=== PATIENT | female | born 1935 | race Caucasian/White ===

== ENCOUNTER 2021-10-23 18:05 | Inpatient (IN) | payer OTHER ==
[~2021-10-23] VITALS: Ht 149.9 cm; Wt 35.4 kg
--- NOTE | 2021-10-23 18:25 | NUR ---
PATIENT SENT BY PMD FOR ECG AND PALPITATIONS AT THE MD OFFICE. THE PATIENT DENIES ANY PALPITATION/CP AT THIS TIME. THE PATIENT IS IN ROOM AIR AND DENIES SOB. RESPIRATION REGULAR AND UNLABORED. THE PATIENT IS ATTACHED TO THE MONITOR. WILL CONTINUE TO MONITOR THE PATIENT.
--- NOTE | 2021-10-23 18:27 | NUR ---
IV ESTABLISHED L AC 20G. LABS DRAWN AND SENT.
[2021-10-23 19:12] LABS: CALCIUM, SERUM 9.1 mg/dL (8.5-10.1); CARBON DIOXIDE 30 mmol/L (21-32); CHLORIDE 104 mmol/L (98-107); CREATININE 0.8 mg/dL (0.6-1.3); GLUCOSE 284 mg/dL (74-106); POTASSIUM 3.8 mmol/L (3.5-5.1); SODIUM SERUM 140 mmol/L (136-145); UREA NITROGEN, BLOOD 13 mg/dL (7-18)
--- NOTE | 2021-10-23 19:41 | NUR ---
technology applications teacher at bedside
[2021-10-23 19:56] LABS: BASOPHILS % (AUTO) 0.2 % (0.0-2.0); EOSINOPHILS % (AUTO) 0.6 % (0.0-6.0); HEMATOCRIT 38 % (33-45); HEMOGLOBIN 12.7 g/dL (11.5-14.8); LYMPHOCYTES # (AUTO) 1.3 K/uL (0.8-4.8); LYMPHOCYTES % (AUTO) 27.1 % (20.0-44.0); MEAN CORPUSCULAR HGB CONC 33 g/dl (31.0-36.0); MEAN CORPUSCULAR VOLUME 87 fL (82-100); MONOCYTES # (AUTO) 0.6 K/uL (0.1-1.30); NEUTROPHILS # (AUTO) 2.9 K/uL (1.8-8.9); NEUTROPHILS % (AUTO) 59.1 % (43.0-81.0); PLATELET COUNT (AUTO) 150 K/uL (150-450); RED BLOOD CELL COUNT(AUTO) 4.39 MIL/uL (4.0-5.2); WHITE BLOOD COUNT (AUTO) 4.9 K/uL (4.3-11.0)
--- NOTE | 2021-10-23 20:47 | NUR ---
COVID TEST COLLECTED AND SENT TO LAB
[2021-10-23] MEDS ORDERED: ASPIRIN 325 MG TABLET PO ONE (21:00)
[2021-10-23] MEDS ORDERED: ASPIRIN 325 MG TABLET ONE (21:01)
--- NOTE | 2021-10-23 21:41 | NUR ---
EPIC PAGED PER DR RICH
[2021-10-23] MEDS ORDERED: ACETAMINOPHEN 325 MG TABLET PO PRN (22:00)
[2021-10-23] MEDS ORDERED: hydrALAZINE HCL IV 20 MG VIAL IV PRN (22:00)
[2021-10-23] MEDS ORDERED: ONDANSETRON HCL/PF 4 MG/2 ML VIAL IVP PRN (22:00)
[2021-10-23] MEDS ORDERED: MORPHINE SULFATE INJ 2 MG/ML DISP.SYRIN IV PRN (22:00)
--- NOTE | 2021-10-23 22:38 | NUR ---
CALLED FOR REPORT NURSE WILL CALL BACK.
--- NOTE | 2021-10-23 22:44 | NUR ---
REPORT GIVEN TO SHERIN
[2021-10-23 23:10] VITALS: BP 140/87
--- NOTE | 2021-10-23 23:30 | NUR ---
PT TRANSPORTED TO [address] PER ACLS
--- NOTE | 2021-10-23 23:31 | NUR ---
RN ADMITTING NOTE PATIENT IN RECEIVED FROM ER VIA GURNEY, PATIENT AMBULATORY AND STEADY. PATIENT IS A/O X 2-3, UKRAINIAN SPEAKING, ABLE TO UNDERSTAND A LITTLE MALAY. PATIENT IS ON RA, TOLERATING WELL. NO SOB NOTED. PATIENT DOES NOT COMPLAIN OF ANY PAIN/CP AT THIS TIME. PATIENT HAS A LAC 20G SALINE LOCKED ONLY, PATENT AND INTACT. PATIENT'S TELE MONITOR READS 68 WITH BBB. SKIN IS INTACT. AL BELONGINGS INVENTORIED. PATIENT ORIENTED TO ROOM, RN, AND INFORMAL WAITER/WAITRESS. SAFETY MEASURES IN PLACE: BED LOCKED AND IN LOWEST POSITION, CALL LIGHT WITHIN REACH, SIDE RAILS UP. WILL MONITOR PATIENT CLOSELY.
--- NOTE | 2021-10-23 23:42 | NUR ---
ECHO BEING DONE AT BEDSIDE
[2021-10-24] MEDS ORDERED: *INSULIN REGULAR(HUMULIN R)HUM 100 UNIT/ML VIAL SQ PRN
[2021-10-24] MEDS ORDERED: DEXTROSE 50%-WATER 50 ML DISP.SYRIN IV PRN
[2021-10-24] MEDS: BLOOD SUGAR DIAGNOSTIC 1 EACH STRIP VI SCH ×5 (00:08→21:45)
[2021-10-24] MEDS: INSULIN GLARGINE, 100 UNIT/ML CARTRIDGE SQ SCH ×2 (00:10→21:44)
--- NOTE | 2021-10-24 00:10 | NUR ---
RN NOTE BS 262 MG/DL. PATIENT GIVEN 6 UNITS COVERAGE AND LANTUS 4 UNITS. SNACKS PROVIDED. WILL MONITOR PATIENT FOR HYPO/HYPERGLYCEMIA.
[2021-10-24 04:00] VITALS: BP 117/54
[2021-10-24] MEDS: INSULIN REGULAR, HUMAN 100 UNIT/ML 3 ML VIAL SQ PRN ×3 (06:22→18:20)
[2021-10-24 06:42] LABS: BASOPHILS % (AUTO) 0.4 % (0.0-2.0); HEMATOCRIT 32 % (33-45); HEMOGLOBIN 10.8 g/dL (11.5-14.8); LYMPHOCYTES # (AUTO) 1.3 K/uL (0.8-4.8); LYMPHOCYTES % (AUTO) 26.8 % (20.0-44.0); MEAN CORPUSCULAR HGB CONC 34 g/dl (31.0-36.0); MEAN CORPUSCULAR VOLUME 86 fL (82-100); MONOCYTES # (AUTO) 0.8 K/uL (0.1-1.30); MONOCYTES % (AUTO) 17.1 % (2.0-12.0); NEUTROPHILS # (AUTO) 2.6 K/uL (1.8-8.9); NEUTROPHILS % (AUTO) 54.7 % (43.0-81.0); PLATELET COUNT (AUTO) 141 K/uL (150-450); RED BLOOD CELL COUNT(AUTO) 3.73 MIL/uL (4.0-5.2); WHITE BLOOD COUNT (AUTO) 4.8 K/uL (4.3-11.0)
--- NOTE | 2021-10-24 06:43 | NUR ---
RN CLOSING NOTE PATIENT IS A/O X 2-3, DANISH SPEAKING, ABLE TO UNDERSTAND A LITTLE URDU. PATIENT IS ON RA, TOLERATING WELL. NO SOB NOTED. PATIENT DID NOT COMPLAIN OF CHEST PAIN/PAIN DURING THE SHIFT. PATIENT HAS A LAC 20G SALINE LOCKED ONLY, PATENT AND INTACT. PATIENT'S TELE MONITOR READS 65 WITH BBB. BS 190 MG/DL, COVERAGE GIVEN PER SLIDING SCALE. SAFETY MEASURES IN PLACE: BED LOCKED AND IN LOWEST POSITION, CALL LIGHT WITHIN REACH, SIDE RAILS UP. ALL NEEDS MET AND ATTENDED. ALL ORDERS CARRIED OUT. WILL ENDORSE TO DAY SHIFT NURSE FOR SAMIRA.
--- NOTE | 2021-10-24 07:30 | NUR ---
COUNCILLOR ABORIGINAL LAND COUNCIL OPENING NOTES PATIENT RECEIVED ASLEEP BUT EASILY ROUSED, IS A/O X 2-3, TRINIDADIAN SPEAKING, ABLE TO UNDERSTAND A LITTLE BELARUSIAN. PATIENT IS ON RA, TOLERATING WELL. NO S/S OF DISTRESS/SOB NOTED. PATIENT HAS A LAC 20G SALINE LOCKED ONLY, PATENT AND INTACT. PATIENT'S TELE MONITOR READS 65 WITH BBB. SAFETY MEASURES IN PLACE: BED LOCKED AND IN LOWEST POSITION, CALL LIGHT WITHIN REACH, SIDE RAILS UP. WILL CONT TO MONITOR.
[2021-10-24 08:00] VITALS: BP 110/60
[2021-10-24 08:55] LABS: ALANINE AMINOTRANSFERASE 23 U/L (12-78); ALBUMIN 2.9 g/dL (3.4-5.0); ALKALINE PHOSPHATASE 73 U/L (46-116); ASPARTATE AMINOTRANSFERASE 13 U/L (15-37); BILIRUBIN,TOTAL 0.2 mg/dL (0.2-1.0); CALCIUM, SERUM 8.5 mg/dL (8.5-10.1); CARBON DIOXIDE 31 mmol/L (21-32); CHLORIDE 110 mmol/L (98-107); CREATININE 0.7 mg/dL (0.6-1.3); GLUCOSE 220 mg/dL (74-106); MAGNESIUM 1.9 mg/dL (1.8-2.4); PHOSPHORUS 3.5 mg/dL (2.5-4.9); POTASSIUM 3.8 mmol/L (3.5-5.1); SODIUM SERUM 144 mmol/L (136-145); TOTAL PROTEIN, SERUM 5.8 g/dL (6.4-8.2); UREA NITROGEN, BLOOD 18 mg/dL (7-18)
[2021-10-24 09:18] LABS: BAND % (MANUAL) 1 % (0.0-5.0); LYMPHOCYTES % (MANUAL) 28 % (16-48); NEUTROPHILS % (MANUAL) 65 (42-76); REACTIVE LYMPHOCYTES 6 % (0-0)
[2021-10-24] MEDS: DOCUSATE SODIUM LIQ 100 MG/10 ML UDC PO SCH ×2 (09:34→17:37)
[2021-10-24] MEDS: POLYETHYLENE GLYCOL 3350 17 GM POWD.PACK PO SCH (09:34)
[2021-10-24] MEDS: HEPARIN SODIUM, PORCINE 5000 UNITS/1 ML VIAL SQ SCH ×2 (09:40→21:47)
[2021-10-24] MEDS: GLUCERNA SHAKE 237 ML CAN PO SCH (17:43)
--- NOTE | 2021-10-24 18:45 | NUR ---
SUPERVISOR MICROWAVE CLOSING NOTES PATIENT IS AWAKE, A/O X 2-3, SYRIAC SPEAKING, ABLE TO UNDERSTAND A LITTLE MALTESE. PATIENT IS ON RA, TOLERATING WELL. NO S/S OF DISTRESS/SOB NOTED. PATIENT HAS A LAC 20G SALINE LOCKED ONLY, PATENT AND INTACT. PATIENT'S TELE MONITOR READS 100 WITH BBB. NEEDS MET AND DUE MEDS ADMINISTERED. SAFETY MEASURES IN PLACE: BED LOCKED AND IN LOWEST POSITION, CALL LIGHT WITHIN REACH, SIDE RAILS UP. WILL CONT TO MONITOR. Addendum: 10/24/21 at 1855 by LUCRETIA BROCK RN WILL ENDORSE TO NEXT SHIFT
[2021-10-24] MEDS: ASPIRIN EC 81 MG TABLET.DR PO SCH (20:04)
[2021-10-24] MEDS: CARVEDILOL 3.125 MG TABLET PO SCH (20:04)
[2021-10-24] MEDS: LOSARTAN POTASSIUM 25 MG TABLET PO SCH (20:04)
[2021-10-24 20:22] VITALS: BP 136/51
[2021-10-24] MEDS ORDERED: ATORVASTATIN 40 MG TABLET PO SCH (22:00)
--- NOTE | 2021-10-24 23:32 | NUR ---
MS/TELE/RN PATIENT IS SLEEPING AT THIS TIME, APPEARS COMFORTABLE, NO SIGNS OF DISTRESS NOTED, CALL LIGHT IN REACH, WILL CONTINUE TO MONITOR.
[2021-10-25 00:50] VITALS: BP 120/58
[2021-10-25 04:16] VITALS: BP 138/88
--- NOTE | 2021-10-25 06:14 | NUR ---
MS/TELE/RN PATIENT IS STILL SLEEPING AT THIS TIME, APPEARS COMFORTABLE, NO SIGNS OF DISTRESS NOTED, CALL LIGHT IN REACH, ALL NEEDS ATTENDED AT THIS TIME, WILL CONTINUE TO MONITOR.
[2021-10-25] MEDS: INSULIN REGULAR, HUMAN 100 UNIT/ML 3 ML VIAL SQ PRN (06:31)
[2021-10-25] MEDS: BLOOD SUGAR DIAGNOSTIC 1 EACH STRIP VI SCH ×2 (06:32→12:09)
--- NOTE | 2021-10-25 07:20 | NUR ---
RESOURCE ECONOMIST OPENING NOTE PATIENT RECEIVED ASLEEP BUT EASY TO WAKE UP. PATIENT IS A/O X 2, PASHT[place] SPEAKING, ABLE TO UNDERSTAND A LITTLE ROMANSH. PATIENT IS ON ROOM AIR, TOLERATING WELL, WITH NO S/S OF RESPIRATORY DISTRESS NOTED. PATIENT HAS A LAC 20G ON SALINE LOCK, PATENT AND INTACT. PATIENT'S TELE MONITOR READING SR. SAFETY MEASURES IN PLACE: BED LOCKED AND IN LOWEST POSITION, CALL LIGHT WITHIN REACH, SIDE RAILS UP. WILL CONTINUE TO MONITOR.
[2021-10-25 08:00] VITALS: BP 118/64
[2021-10-25 08:11] LABS: CHOLESTEROL 189 mg/dL (<200); HDL CHOLESTEROL 107 mg/dL (40-60); LDL 71 mg/dL (0-99); TRIGLYCERIDES 34 mg/dL (30-150)
[2021-10-25] MEDS: CARVEDILOL 3.125 MG TABLET PO SCH ×2 (08:55→17:36)
[2021-10-25] MEDS: LOSARTAN POTASSIUM 25 MG TABLET PO SCH (08:55)
[2021-10-25] MEDS: GLUCERNA SHAKE 237 ML CAN PO SCH ×2 (08:55→17:37)
[2021-10-25] MEDS: DOCUSATE SODIUM LIQ 100 MG/10 ML UDC PO SCH ×2 (08:56→17:35)
[2021-10-25] MEDS: ASPIRIN EC 81 MG TABLET.DR PO SCH (08:56)
[2021-10-25] MEDS: POLYETHYLENE GLYCOL 3350 17 GM POWD.PACK PO SCH (08:56)
[2021-10-25] MEDS: HEPARIN SODIUM, PORCINE 5000 UNITS/1 ML VIAL SQ SCH (08:57)
[2021-10-25] MEDS ORDERED: LOSA25TA27 PO (11:25)
[2021-10-25] MEDS ORDERED: Aspirin Ec PO (11:25)
[2021-10-25] MEDS ORDERED: INSU100V28 SQ (11:25)
[2021-10-25] MEDS ORDERED: CARV3.122 PO (11:25)
[2021-10-25] MEDS ORDERED: ATOR40TA PO (11:25)
[2021-10-25] MEDS ORDERED: Insulin Glargine,Hum SQ (11:25)
[2021-10-25] MEDS ORDERED: DOCU50LI PO (11:25)
[2021-10-25] MEDS ORDERED: *INS REG SQ (11:25)
[2021-10-25] MEDS ORDERED: SYRI-614 SUBCUT (11:34)
[2021-10-25] MEDS ORDERED: LANC1COM7 MC (11:34)
[2021-10-25] MEDS ORDERED: BLOO-1451 MC (11:34)
--- NOTE | 2021-10-25 15:10 | NUR ---
COATING ENGINEER NOTE PATIENT SEEN BY DR. NUÑEZ WITH ORDER TO DISCHARGE PATIENT. PATIENT WITH SOME CONFUSION, UNABLE TO GIVE HEALTH TEACHING AT THIS TIME. WILL CONTINUE TO MONITOR PATIENT. SPOKE WITH PATIENT'S SON NICOLE AND HE SAID HE WILL PIPE COVERING MOLDER HPATIENT AROUND 1700H.
[2021-10-25] MEDS ORDERED: METFORMIN 500 MG TABLET PO SCH (17:00)
[2021-10-25 17:36] VITALS: BP 144/82
--- NOTE | 2021-10-25 17:45 | NUR ---
INTERIOR SPECIALIST NOTE PATIENT DISCHARGED ORDERED. IN STABLE CONDITION. IV ACCESS REMOVED AND COVERED WITH DRY DRESSING. HEALTH TEACHING GIVEN TO SON AND COVERED WITH DRY DRESSING. IN STABLE CONDITION. DISCHARGED ORDERED. IN STABLE CONDITION.
[2021-10-26] MEDS ORDERED: LOSARTAN POTASSIUM 25 MG TABLET PO SCH (09:00)
== END 2021-10-25 17:37 | disposition home or self-care (01) | DRG 315 ==
LOC: ER 18:09 → TELE 22:28
PROVIDERS: ADMIT Internal Medicine; ATTEND Nurse Practitioner Acute Care
DX: I42.9 Cardiomyopathy, unspecified (principal); E44.0 Moderate protein-calorie malnutrition; G30.9 Alzheimer's disease, unspecified; F02.80 Dementia in other diseases classified elsewhere, unspecified severity, without behavioral disturbance, psychotic disturbance, mood disturbance, and anxiety; I44.7 Left bundle-branch block, unspecified; Z20.822 Contact with and (suspected) exposure to COVID-19; E11.65 Type 2 diabetes mellitus with hyperglycemia; E78.5 Hyperlipidemia, unspecified; E88.09 Other disorders of plasma-protein metabolism, not elsewhere classified; I10 Essential (primary) hypertension; K59.00 Constipation, unspecified; Z79.4 Long term (current) use of insulin; Z79.82 Long term (current) use of aspirin; Z79.899 Other long term (current) drug therapy
CPT/HCPCS: 36415; 71045-TC; 80048-TC; 80053-TC; 80061-TC; 82962-TC; 83735-TC; 84100-TC; 84484-TC; 85025-TC; 87081-TC; 93307-TC; C9803; G0378; J1644; J1815

== ENCOUNTER 2023-03-22 00:32 | Inpatient (IN) | payer MEDICARE, OTHER ==
[~2023-03-22] VITALS: Ht 152.4 cm; Wt 35.4 kg
[~2023-03-22 00:32] MED LIST: ATOR40TA PO; Aspirin Ec PO; BLOO-1451 MC; CARV3.122 PO; DOCU50LI PO; Insulin Glargine,Hum SQ; LOSA25TA27 PO
[2023-03-22] MEDS ORDERED: PANTOPRAZOLE 80 MG in IV NS 0.9% 500 ML IV ONE (01:00)
[2023-03-22] MEDS ORDERED: PANTOPRAZOLE 40 MG VIAL ONE (01:08)
[2023-03-22 01:12] LABS: BASOPHILS % (AUTO) 0.8 % (0.0-2.0); EOSINOPHILS % (AUTO) 0.6 % (0.0-6.0); HEMATOCRIT 36 % (33-45); HEMOGLOBIN 11.7 g/dL (11.5-14.8); LYMPHOCYTES # (AUTO) 0.8 K/uL (0.8-4.8); LYMPHOCYTES % (AUTO) 18.5 % (20.0-44.0); MEAN CORPUSCULAR HEMOGLOBIN 28 PG (26.0-33.0); MEAN CORPUSCULAR HGB CONC 33 g/dl (31.0-36.0); MEAN CORPUSCULAR VOLUME 86 fL (82-100); MONOCYTES # (AUTO) 0.8 K/uL (0.1-1.30); MONOCYTES % (AUTO) 17.6 % (2.0-12.0); NEUTROPHILS # (AUTO) 2.8 K/uL (1.8-8.9); NEUTROPHILS % (AUTO) 62.5 % (43.0-81.0); PLATELET COUNT (AUTO) 175 K/uL (150-450); RED BLOOD CELL COUNT(AUTO) 4.15 MIL/uL (4.0-5.2); RED CELL DISTRIBUTION WIDTH 16.1 % (11.5-15.0); WHITE BLOOD COUNT (AUTO) 4.5 K/uL (4.3-11.0)
[2023-03-22 01:20] LABS: INR 1.03 (0.91-1.10); PARTIAL THROMBOPLASTIN TIME 23.7 SEC (24.3-34.3); PROTHROMBIN TIME 10.9 SECS (9.2-11.1)
[2023-03-22 01:40] LABS: ALANINE AMINOTRANSFERASE 83 U/L (12-78); ALBUMIN 3.4 g/dL (3.4-5.0); ALKALINE PHOSPHATASE 310 U/L (46-116); ASPARTATE AMINOTRANSFERASE 68 U/L (15-37); BILIRUBIN,DIRECT 0.1 mg/dL (0.0-0.2); BILIRUBIN,TOTAL 0.2 mg/dL (0.2-1.0); CALCIUM, SERUM 9.5 mg/dL (8.5-10.1); CARBON DIOXIDE 30 mmol/L (21-32); CHLORIDE 104 mmol/L (98-107); CREATININE 0.8 mg/dL (0.6-1.3); GLUCOSE 360 mg/dL (74-106); POTASSIUM 3.9 mmol/L (3.5-5.1); SODIUM SERUM 142 mmol/L (136-145); TOTAL PROTEIN, SERUM 7.4 g/dL (6.4-8.2); UREA NITROGEN, BLOOD 28 mg/dL (7-18)
[2023-03-22 02:38] LABS: LYMPHOCYTES % (MANUAL) 24 % (16-48); MONOCYTES % (MANUAL) 13 % (0-11.0); NEUTROPHILS % (MANUAL) 63 (42-76); PLATELET ESTIMATE ADEQUATE
[2023-03-22] MEDS ORDERED: GLUC1KIT IM (09:49)
[2023-03-22] MEDS ORDERED: MIRT7.5T10 PO (09:49)
[2023-03-22] MEDS ORDERED: METF-440 PO (09:49)
[2023-03-22] MEDS ORDERED: ASCO500T10 PO (09:49)
[2023-03-22] MEDS ORDERED: SITA100T PO (09:49)
[2023-03-22] MEDS ORDERED: MAGN400O6 PO (09:49)
[2023-03-22] MEDS ORDERED: SENN-261 PO (09:49)
[2023-03-22] MEDS ORDERED: BISA10SU11 RC (09:49)
[2023-03-22] MEDS ORDERED: ACET-868 PO (09:49)
[2023-03-22] MEDS ORDERED: MULT-213 PO (09:49)
[2023-03-22] MEDS ORDERED: DOCU-141 PO (09:49)
[2023-03-22] MEDS ORDERED: INSU100V7 SQ (09:49)
[2023-03-22] MEDS ORDERED: ACET-2605 PO (09:49)
[2023-03-22] MEDS ORDERED: Z GUARD REMEDY 4 OZ OINT TP PRN (12:30)
[2023-03-22] MEDS ORDERED: ONDANSETRON HCL/PF 4 MG/2 ML VIAL IVP PRN (12:30)
[2023-03-22] MEDS ORDERED: MAG HYDROX/AL HYDROX/SIMETH 30 ML UDC PO PRN (12:30)
[2023-03-22] MEDS ORDERED: MAGNESIUM HYDROXIDE 30 ML UDC PO PRN (12:30)
[2023-03-22] MEDS ORDERED: ACETAMINOPHEN 325 MG TABLET PO PRN (12:30)
[2023-03-22 16:17] VITALS: BP 118/71; TEMP 98.1; O2SAT 100
[2023-03-22 20:25] VITALS: BP 130/72; TEMP 97.6; O2SAT 94
[2023-03-22] MEDS: MIRTAZAPINE 15 MG TABLET PO SCH (21:55)
[2023-03-22] MEDS: BLOOD SUGAR DIAGNOSTIC 1 EACH STRIP VI SCH (21:57)
[2023-03-22] MEDS: *INSULIN REGULAR(HUMULIN R)HUM 100 UNIT/ML VIAL SQ PRN (21:59)
[2023-03-22] MEDS: INSULIN GLARGINE, 100 UNIT/ML CARTRIDGE SQ SCH (22:00)
[2023-03-23 04:00] VITALS: BP 130/88; TEMP 98; O2SAT 94
[2023-03-23] MEDS: BLOOD SUGAR DIAGNOSTIC 1 EACH STRIP VI SCH ×4 (07:30→22:10)
[2023-03-23 08:00] VITALS: BP 125/78; TEMP 98; O2SAT 94
[2023-03-23] MEDS: ASCORBIC ACID 500 MG TABLET PO SCH ×2 (08:10→08:11)
[2023-03-23] MEDS: MULTIVIT W/MINERALS 1 TAB TABLET PO SCH (08:10)
[2023-03-23] MEDS: LINAGLIPTIN 5 MG TABLET PO SCH (08:11)
[2023-03-23] MEDS ORDERED: PANTOPRAZOLE 40 MG VIAL IV SCH (09:00)
[2023-03-23 12:00] VITALS: BP 128/76; TEMP 97.9; O2SAT 97
[2023-03-23] MEDS: INSULIN REGULAR, HUMAN 100 UNIT/ML 3 ML VIAL SQ PRN ×3 (13:12→22:05)
[2023-03-23 15:29] LABS: BASOPHILS % (AUTO) 0.3 % (0.0-2.0); EOSINOPHILS % (AUTO) 0.8 % (0.0-6.0); HEMATOCRIT 34 % (33-45); HEMOGLOBIN 11.2 g/dL (11.5-14.8); LYMPHOCYTES % (AUTO) 18.5 % (20.0-44.0); MEAN CORPUSCULAR HEMOGLOBIN 28 PG (26.0-33.0); MEAN CORPUSCULAR HGB CONC 33 g/dl (31.0-36.0); MEAN CORPUSCULAR VOLUME 86 fL (82-100); MONOCYTES # (AUTO) 0.7 K/uL (0.1-1.30); NEUTROPHILS # (AUTO) 3.5 K/uL (1.8-8.9); NEUTROPHILS % (AUTO) 66.4 % (43.0-81.0); PLATELET COUNT (AUTO) 169 K/uL (150-450); RED BLOOD CELL COUNT(AUTO) 3.97 MIL/uL (4.0-5.2); RED CELL DISTRIBUTION WIDTH 16.3 % (11.5-15.0); WHITE BLOOD COUNT (AUTO) 5.3 K/uL (4.3-11.0)
[2023-03-23 15:44] LABS: ALANINE AMINOTRANSFERASE 45 U/L (12-78); ALBUMIN 2.6 g/dL (3.4-5.0); ALKALINE PHOSPHATASE 173 U/L (46-116); ASPARTATE AMINOTRANSFERASE 21 U/L (15-37); BILIRUBIN,DIRECT 0.1 mg/dL (0.0-0.2); BILIRUBIN,TOTAL 0.2 mg/dL (0.2-1.0); CALCIUM, SERUM 8.5 mg/dL (8.5-10.1); CARBON DIOXIDE 24 mmol/L (21-32); CHLORIDE 107 mmol/L (98-107); CREATININE 0.6 mg/dL (0.6-1.3); GLUCOSE 215 mg/dL (74-106); MAGNESIUM 2.1 mg/dL (1.8-2.4); PHOSPHORUS 4.2 mg/dL (2.5-4.9); POTASSIUM 3.9 mmol/L (3.5-5.1); SODIUM SERUM 141 mmol/L (136-145); UREA NITROGEN, BLOOD 30 mg/dL (7-18)
[2023-03-23 16:00] VITALS: BP 133/86; TEMP 98; O2SAT 95
[2023-03-23] MEDS: OLANZAPINE 10 MG VIAL IM PRN (19:50)
[2023-03-23 20:00] VITALS: BP 144/71; TEMP 97.8; O2SAT 97
[2023-03-23] MEDS: MIRTAZAPINE 15 MG TABLET PO SCH (22:00)
[2023-03-23] MEDS: INSULIN GLARGINE, 100 UNIT/ML CARTRIDGE SQ SCH (22:06)
[2023-03-23] MEDS: ZOLPIDEM TARTRATE 5 MG TABLET PO PRN (22:30)
[2023-03-24] VITALS: BP 139/68; TEMP 97.8; O2SAT 98
[2023-03-24 05:06] VITALS: BP 111/55; TEMP 97.6; O2SAT 96
[2023-03-24] MEDS: DEXTROSE 50%-WATER 50 ML DISP.SYRIN IV PRN ×2 (05:35→12:24)
[2023-03-24 06:21] LABS: BASOPHILS % (AUTO) 0.1 % (0.0-2.0); EOSINOPHILS % (AUTO) 0.2 % (0.0-6.0); HEMATOCRIT 36 % (33-45); LYMPHOCYTES # (AUTO) 0.8 K/uL (0.8-4.8); LYMPHOCYTES % (AUTO) 9.1 % (20.0-44.0); MEAN CORPUSCULAR HEMOGLOBIN 29 PG (26.0-33.0); MEAN CORPUSCULAR HGB CONC 33 g/dl (31.0-36.0); MEAN CORPUSCULAR VOLUME 86 fL (82-100); MONOCYTES # (AUTO) 0.8 K/uL (0.1-1.30); MONOCYTES % (AUTO) 9.6 % (2.0-12.0); NEUTROPHILS # (AUTO) 6.8 K/uL (1.8-8.9); PLATELET COUNT (AUTO) 207 K/uL (150-450); RED BLOOD CELL COUNT(AUTO) 4.19 MIL/uL (4.0-5.2); RED CELL DISTRIBUTION WIDTH 15.9 % (11.5-15.0); WHITE BLOOD COUNT (AUTO) 8.4 K/uL (4.3-11.0)
[2023-03-24] MEDS: BLOOD SUGAR DIAGNOSTIC 1 EACH STRIP VI SCH ×4 (06:34→22:15)
[2023-03-24] MEDS: INSULIN REGULAR, HUMAN 100 UNIT/ML 3 ML VIAL SQ PRN ×3 (06:34→17:22)
[2023-03-24 06:42] LABS: BILIRUBIN,DIRECT 0.1 mg/dL (0.0-0.2); BILIRUBIN,TOTAL 0.2 mg/dL (0.2-1.0); TOTAL PROTEIN, SERUM 6.9 g/dL (6.4-8.2)
[2023-03-24 06:45] LABS: CALCIUM, SERUM 9.1 mg/dL (8.5-10.1); CARBON DIOXIDE 25 mmol/L (21-32); CHLORIDE 109 mmol/L (98-107); CREATININE 0.6 mg/dL (0.6-1.3); MAGNESIUM 2.1 mg/dL (1.8-2.4); PHOSPHORUS 3.8 mg/dL (2.5-4.9); POTASSIUM 3.5 mmol/L (3.5-5.1); SODIUM SERUM 143 mmol/L (136-145); UREA NITROGEN, BLOOD 37 mg/dL (7-18)
[2023-03-24 06:50] LABS: GLUCOSE 46 mg/dL (74-106)
[2023-03-24 08:00] VITALS: BP 112/61; TEMP 98; O2SAT 97
[2023-03-24] MEDS: PANTOPRAZOLE 40 MG TABLET.DR PO SCH (10:51)
[2023-03-24] MEDS: MULTIVIT W/MINERALS 1 TAB TABLET PO SCH (10:52)
[2023-03-24] MEDS: ASCORBIC ACID 500 MG TABLET PO SCH (10:52)
[2023-03-24] MEDS: LINAGLIPTIN 5 MG TABLET PO SCH (10:52)
[2023-03-24 12:00] VITALS: BP 125/68; TEMP 98; O2SAT 99
[2023-03-24 16:00] VITALS: BP 119/63; TEMP 98; O2SAT 98
[2023-03-24 20:00] VITALS: BP 149/89; TEMP 98.4; O2SAT 95
[2023-03-24] MEDS: OLANZAPINE 10 MG VIAL IM PRN (20:39)
[2023-03-24] MEDS: *INSULIN REGULAR(HUMULIN R)HUM 100 UNIT/ML VIAL SQ PRN (22:13)
[2023-03-24] MEDS: INSULIN GLARGINE, 100 UNIT/ML CARTRIDGE SQ SCH (22:14)
[2023-03-24] MEDS: MIRTAZAPINE 15 MG TABLET PO SCH (22:31)
[2023-03-24] MEDS: ZOLPIDEM TARTRATE 5 MG TABLET PO PRN (22:31)
[2023-03-25 00:10] VITALS: BP 134/83; TEMP 97.6; O2SAT 95
[2023-03-25] MEDS ORDERED: OLANZAPINE 10 MG VIAL IM ONE (02:30)
[2023-03-25] MEDS: BLOOD SUGAR DIAGNOSTIC 1 EACH STRIP VI SCH ×4 (05:33→22:53)
[2023-03-25] MEDS: INSULIN REGULAR, HUMAN 100 UNIT/ML 3 ML VIAL SQ PRN ×3 (05:33→18:07)
[2023-03-25 07:00] VITALS: BP 109/62; TEMP 97.6; O2SAT 100
[2023-03-25 07:21] LABS: BASOPHILS % (AUTO) 0.1 % (0.0-2.0); EOSINOPHILS % (AUTO) 0.2 % (0.0-6.0); HEMATOCRIT 38 % (33-45); HEMOGLOBIN 12.3 g/dL (11.5-14.8); LYMPHOCYTES # (AUTO) 0.8 K/uL (0.8-4.8); LYMPHOCYTES % (AUTO) 6.7 % (20.0-44.0); MEAN CORPUSCULAR HEMOGLOBIN 28 PG (26.0-33.0); MEAN CORPUSCULAR HGB CONC 33 g/dl (31.0-36.0); MEAN CORPUSCULAR VOLUME 87 fL (82-100); MONOCYTES # (AUTO) 1.7 K/uL (0.1-1.30); MONOCYTES % (AUTO) 15.1 % (2.0-12.0); NEUTROPHILS % (AUTO) 77.9 % (43.0-81.0); PLATELET COUNT (AUTO) 179 K/uL (150-450); RED BLOOD CELL COUNT(AUTO) 4.37 MIL/uL (4.0-5.2); RED CELL DISTRIBUTION WIDTH 16.1 % (11.5-15.0); WHITE BLOOD COUNT (AUTO) 11.6 K/uL (4.3-11.0)
[2023-03-25 07:39] LABS: CALCIUM, SERUM 8.6 mg/dL (8.5-10.1); CARBON DIOXIDE 22 mmol/L (21-32); CHLORIDE 108 mmol/L (98-107); CREATININE 0.5 mg/dL (0.6-1.3); GLUCOSE 90 mg/dL (74-106); MAGNESIUM 2.2 mg/dL (1.8-2.4); PHOSPHORUS 3.1 mg/dL (2.5-4.9); POTASSIUM 3.7 mmol/L (3.5-5.1); SODIUM SERUM 140 mmol/L (136-145); UREA NITROGEN, BLOOD 21 mg/dL (7-18)
[2023-03-25 08:00] VITALS: BP 138/59; TEMP 97.7; O2SAT 98
[2023-03-25] MEDS: MULTIVIT W/MINERALS 1 TAB TABLET PO SCH (08:57)
[2023-03-25] MEDS: PANTOPRAZOLE 40 MG TABLET.DR PO SCH (08:57)
[2023-03-25] MEDS: LINAGLIPTIN 5 MG TABLET PO SCH (08:58)
[2023-03-25] MEDS: ASCORBIC ACID 500 MG TABLET PO SCH (08:58)
[2023-03-25 11:06] LABS: BAND % (MANUAL) 2 % (0.0-5.0); LYMPHOCYTES % (MANUAL) 6 % (16-48); MONOCYTES % (MANUAL) 13 % (0-11.0); NEUTROPHILS % (MANUAL) 79 (42-76); PLATELET ESTIMATE ADEQUATE
[2023-03-25 12:00] VITALS: BP 118/76; TEMP 98.2; O2SAT 98
[2023-03-25] MEDS ORDERED: AMOX-430 PO (15:58)
[2023-03-25 16:00] VITALS: BP 94/52; TEMP 97.3; O2SAT 94
[2023-03-25] MEDS: AMOX/CLAVULANATE 875 MG TABLET PO SCH ×2 (16:50→22:08)
[2023-03-25 20:00] VITALS: BP 107/62; TEMP 97.6; O2SAT 98
[2023-03-25] MEDS: MIRTAZAPINE 15 MG TABLET PO SCH (22:08)
[2023-03-25] MEDS: INSULIN GLARGINE, 100 UNIT/ML CARTRIDGE SQ SCH (23:01)
[2023-03-25] MEDS: *INSULIN REGULAR(HUMULIN R)HUM 100 UNIT/ML VIAL SQ PRN (23:03)
[2023-03-26] MEDS: BLOOD SUGAR DIAGNOSTIC 1 EACH STRIP VI SCH ×2 (06:40→11:48)
[2023-03-26 08:00] VITALS: BP 116/59; TEMP 97.9; O2SAT 95
[2023-03-26] MEDS: PANTOPRAZOLE 40 MG TABLET.DR PO SCH (08:57)
[2023-03-26] MEDS: ASCORBIC ACID 500 MG TABLET PO SCH (08:57)
[2023-03-26] MEDS: AMOX/CLAVULANATE 875 MG TABLET PO SCH (08:57)
[2023-03-26] MEDS: MULTIVIT W/MINERALS 1 TAB TABLET PO SCH (08:57)
[2023-03-26] MEDS ORDERED: NEOMY SULF/BACITRAC ZN/POLY 15 GM TUBE TP SCH (09:00)
[2023-03-26] MEDS: LINAGLIPTIN 5 MG TABLET PO SCH (09:24)
[2023-03-26] MEDS: INSULIN REGULAR, HUMAN 100 UNIT/ML 3 ML VIAL SQ PRN (12:25)
[2023-03-26 12:30] VITALS: BP 129/59; TEMP 97.9; O2SAT 95
[2023-03-26] MEDS ORDERED: GLUCERNA SHAKE 237 ML CAN PO SCH (17:00)
== END 2023-03-26 14:00 | DRG 871 ==
LOC: ER 00:44 → TRANSITION 09:39 → TELE 12:16 → MED 03-25 17:45 → TELE 03-26 05:00 → MED 03-26 05:13
PROVIDERS: ADMIT Student in an Organized Health Care Education/Training Program; ATTEND Nurse Practitioner Acute Care
DX: A41.9 Sepsis, unspecified organism (principal); J15.69 Pneumonia due to other Gram-negative bacteria; K92.2 Gastrointestinal hemorrhage, unspecified; F03.911 Unspecified dementia, unspecified severity, with agitation; E11.649 Type 2 diabetes mellitus with hypoglycemia without coma; Z98.890 Other specified postprocedural states; Z79.4 Long term (current) use of insulin; Z79.82 Long term (current) use of aspirin; Z79.899 Other long term (current) drug therapy; L02.93 Carbuncle, unspecified; I80.8 Phlebitis and thrombophlebitis of other sites; I10 Essential (primary) hypertension; E78.5 Hyperlipidemia, unspecified; Z79.84 Long term (current) use of oral hypoglycemic drugs; R79.89 Other specified abnormal findings of blood chemistry; R74.01 Elevation of levels of liver transaminase levels
CPT/HCPCS: 36415; 71045-TC; 76882; 80048-TC; 80076-TC; 82962-TC; 83735-TC; 84100-TC; 85025-TC; 85027-TC; 85730-TC; 86850-TC; 87081-TC; C9113; G0378; J1815; J3490; J7040

== ENCOUNTER 2023-04-03 01:18 | Inpatient (IN) | payer MEDICARE, OTHER ==
[~2023-04-03] VITALS: Ht 152.4 cm; Wt 39.5 kg
[~2023-04-03 01:18] MED LIST changes: +ACET-2605 PO; +ACET-868 PO; +AMOX-430 PO; +ASCO500T10 PO; -ATOR40TA PO; -Aspirin Ec PO; +BISA10SU11 RC; -BLOO-1451 MC; -CARV3.122 PO; +DOCU-141 PO; -DOCU50LI PO; +GLUC1KIT IM; +INSU100V7 SQ; -Insulin Glargine,Hum SQ; -LOSA25TA27 PO; +MAGN400O6 PO; +METF-440 PO; +MIRT7.5T10 PO; +MULT-213 PO; +SENN-261 PO; +SITA100T PO
[2023-04-03 04:40] LABS: BASOPHILS % (AUTO) 0.4 % (0.0-2.0); EOSINOPHILS # (AUTO) 0.1 K/uL (0.0-0.7); EOSINOPHILS % (AUTO) 1.3 % (0.0-6.0); HEMATOCRIT 32 % (33-45); HEMOGLOBIN 10.6 g/dL (11.5-14.8); LYMPHOCYTES # (AUTO) 1.4 K/uL (0.8-4.8); LYMPHOCYTES % (AUTO) 29.3 % (20.0-44.0); MEAN CORPUSCULAR HEMOGLOBIN 28 PG (26.0-33.0); MEAN CORPUSCULAR HGB CONC 33 g/dl (31.0-36.0); MEAN CORPUSCULAR VOLUME 86 fL (82-100); MONOCYTES # (AUTO) 0.8 K/uL (0.1-1.30); MONOCYTES % (AUTO) 17.7 % (2.0-12.0); NEUTROPHILS # (AUTO) 2.4 K/uL (1.8-8.9); NEUTROPHILS % (AUTO) 51.3 % (43.0-81.0); PLATELET COUNT (AUTO) 291 K/uL (150-450); RED BLOOD CELL COUNT(AUTO) 3.74 MIL/uL (4.0-5.2); RED CELL DISTRIBUTION WIDTH 15.6 % (11.5-15.0); WHITE BLOOD COUNT (AUTO) 4.7 K/uL (4.3-11.0)
[2023-04-03 04:43] LABS: CALCIUM, SERUM 9.2 mg/dL (8.5-10.1); CARBON DIOXIDE 25 mmol/L (21-32); CHLORIDE 108 mmol/L (98-107); CREATININE 0.9 mg/dL (0.6-1.3); SODIUM SERUM 141 mmol/L (136-145); UREA NITROGEN, BLOOD 29 mg/dL (7-18)
[2023-04-03 04:55] LABS: GLUCOSE 49 mg/dL (74-106)
[2023-04-03] MEDS ORDERED: DEXTROSE 50%-WATER 50 ML DISP.SYRIN ONE (04:57)
[2023-04-03] MEDS ORDERED: CEFEPIME 1 GM in IV D5W 50 ML IV ONE (05:30)
[2023-04-03] MEDS ORDERED: VANCOMYCIN 1 GM in IV D5W 250 ML IV ONE (05:30)
[2023-04-03] MEDS ORDERED: CEFEPIME 1 GM VIAL ONE (05:59)
[2023-04-03] MEDS ORDERED: VANCOMYCIN 1 GM /D5W 250 ML PB IV ONE (06:00)
[2023-04-03 08:04] LABS: LYMPHOCYTES % (MANUAL) 34 % (16-48); MONOCYTES % (MANUAL) 13 % (0-11.0); NEUTROPHILS % (MANUAL) 53 (42-76); PLATELET ESTIMATE ADEQUATE
[2023-04-03] MEDS ORDERED: DEXT38GE12 PO (08:41)
[2023-04-03] MEDS ORDERED: IBUP-1957 PO (08:41)
[2023-04-03] MEDS ORDERED: VANC1VIA34 IV (09:46)
[2023-04-03] MEDS ORDERED: ONDANSETRON HCL/PF 4 MG/2 ML VIAL IVP PRN (10:30)
[2023-04-03] MEDS ORDERED: MAG HYDROX/AL HYDROX/SIMETH 30 ML UDC PO PRN (10:30)
[2023-04-03] MEDS ORDERED: Z GUARD REMEDY 4 OZ OINT TP PRN (10:30)
[2023-04-03] MEDS ORDERED: IV D5/0.45 NACL 1,000 ML IV PRN (10:30)
[2023-04-03] MEDS ORDERED: ACETAMINOPHEN 325 MG TABLET PO PRN (10:30)
[2023-04-03] MEDS ORDERED: DEXTROSE 50%-WATER 50 ML DISP.SYRIN IV PRN (10:30)
[2023-04-03] MEDS ORDERED: MAGNESIUM HYDROXIDE 30 ML UDC PO PRN (10:30)
[2023-04-03] MEDS: INSULIN REGULAR, HUMAN 100 UNIT/ML 3 ML VIAL SQ PRN (12:18)
[2023-04-03] MEDS: BLOOD SUGAR DIAGNOSTIC 1 EACH STRIP VI SCH ×3 (12:26→22:07)
[2023-04-03 16:00] VITALS: BP 107/61; TEMP 97.9; O2SAT 94
[2023-04-03 20:00] VITALS: BP 122/64; TEMP 97.9; O2SAT 100
[2023-04-03] MEDS: *INSULIN REGULAR(HUMULIN R)HUM 100 UNIT/ML VIAL SQ PRN (22:10)
[2023-04-04] MEDS: VANCOMYCIN HCL 0.75 GM in IV D5W 250 ML IV SCH (06:01)
[2023-04-04] MEDS: BLOOD SUGAR DIAGNOSTIC 1 EACH STRIP VI SCH ×4 (06:41→22:58)
[2023-04-04] MEDS: INSULIN REGULAR, HUMAN 100 UNIT/ML 3 ML VIAL SQ PRN ×2 (06:41→17:17)
[2023-04-04 07:30] VITALS: BP 118/70; TEMP 97.3; O2SAT 97
[2023-04-04 07:34] LABS: BASOPHILS % (AUTO) 0.5 % (0.0-2.0); EOSINOPHILS # (AUTO) 0.1 K/uL (0.0-0.7); EOSINOPHILS % (AUTO) 1.6 % (0.0-6.0); HEMATOCRIT 33 % (33-45); HEMOGLOBIN 10.5 g/dL (11.5-14.8); LYMPHOCYTES # (AUTO) 1.1 K/uL (0.8-4.8); LYMPHOCYTES % (AUTO) 24.3 % (20.0-44.0); MEAN CORPUSCULAR HEMOGLOBIN 28 PG (26.0-33.0); MEAN CORPUSCULAR HGB CONC 32 g/dl (31.0-36.0); MEAN CORPUSCULAR VOLUME 86 fL (82-100); MONOCYTES # (AUTO) 0.9 K/uL (0.1-1.30); MONOCYTES % (AUTO) 19.4 % (2.0-12.0); NEUTROPHILS # (AUTO) 2.5 K/uL (1.8-8.9); NEUTROPHILS % (AUTO) 54.2 % (43.0-81.0); PLATELET COUNT (AUTO) 244 K/uL (150-450); RED BLOOD CELL COUNT(AUTO) 3.78 MIL/uL (4.0-5.2); RED CELL DISTRIBUTION WIDTH 15.7 % (11.5-15.0); WHITE BLOOD COUNT (AUTO) 4.7 K/uL (4.3-11.0)
[2023-04-04 07:50] LABS: CALCIUM, SERUM 8.5 mg/dL (8.5-10.1); CARBON DIOXIDE 27 mmol/L (21-32); CHLORIDE 106 mmol/L (98-107); CREATININE 0.8 mg/dL (0.6-1.3); GLUCOSE 211 mg/dL (74-106); MAGNESIUM 1.9 mg/dL (1.8-2.4); PHOSPHORUS 3.3 mg/dL (2.5-4.9); POTASSIUM 4.1 mmol/L (3.5-5.1); SODIUM SERUM 139 mmol/L (136-145); UREA NITROGEN, BLOOD 20 mg/dL (7-18)
[2023-04-04 08:02] LABS: ANISOCYTOSIS 1+; EOSINOPHILS % (MANUAL) 1 % (0-4); LYMPHOCYTES % (MANUAL) 25 % (16-48); MONOCYTES % (MANUAL) 14 % (0-11.0); NEUTROPHILS % (MANUAL) 60 (42-76); PLATELET ESTIMATE ADEQUATE
[2023-04-04] MEDS ORDERED: BISACODYL SUPP (10 MG) 10 MG/SUPP.RECT SUPP.RECT RC PRN (10:00)
[2023-04-04] MEDS ORDERED: LIDOCAINE 2%-EPI 1:100,000 30 ML VIAL TP ONE (15:30)
[2023-04-04 16:00] VITALS: BP 125/75; TEMP 98.6; O2SAT 92
[2023-04-04] MEDS: GLUCERNA SHAKE 237 ML CAN PO SCH (17:21)
[2023-04-04 20:00] VITALS: BP 111/50; TEMP 97; TEMP 97.8; O2SAT 97
[2023-04-04] MEDS: MIRTAZAPINE 15 MG TABLET PO SCH (21:31)
[2023-04-04] MEDS: SENNOSIDES 8.6 MG TABLET PO SCH (21:31)
[2023-04-04] MEDS: *INSULIN REGULAR(HUMULIN R)HUM 100 UNIT/ML VIAL SQ PRN (22:56)
[2023-04-05 06:24] LABS: BASOPHILS % (AUTO) 0.3 % (0.0-2.0); EOSINOPHILS # (AUTO) 0.1 K/uL (0.0-0.7); EOSINOPHILS % (AUTO) 1.1 % (0.0-6.0); HEMATOCRIT 36 % (33-45); HEMOGLOBIN 11.7 g/dL (11.5-14.8); LYMPHOCYTES # (AUTO) 1.2 K/uL (0.8-4.8); LYMPHOCYTES % (AUTO) 26.6 % (20.0-44.0); MEAN CORPUSCULAR HEMOGLOBIN 28 PG (26.0-33.0); MEAN CORPUSCULAR HGB CONC 32 g/dl (31.0-36.0); MEAN CORPUSCULAR VOLUME 86 fL (82-100); MONOCYTES # (AUTO) 0.8 K/uL (0.1-1.30); MONOCYTES % (AUTO) 17.5 % (2.0-12.0); NEUTROPHILS # (AUTO) 2.5 K/uL (1.8-8.9); NEUTROPHILS % (AUTO) 54.5 % (43.0-81.0); PLATELET COUNT (AUTO) 303 K/uL (150-450); RED BLOOD CELL COUNT(AUTO) 4.21 MIL/uL (4.0-5.2); RED CELL DISTRIBUTION WIDTH 15.6 % (11.5-15.0); WHITE BLOOD COUNT (AUTO) 4.7 K/uL (4.3-11.0)
[2023-04-05 06:38] LABS: CALCIUM, SERUM 8.7 mg/dL (8.5-10.1); CREATININE 0.9 mg/dL (0.6-1.3); PHOSPHORUS 3.3 mg/dL (2.5-4.9); POTASSIUM 3.7 mmol/L (3.5-5.1)
[2023-04-05] MEDS: VANCOMYCIN HCL 0.75 GM in IV D5W 250 ML IV SCH (06:58)
[2023-04-05 07:30] VITALS: BP_SYST 111; BP_SYST 123; BP_DIAS 63; BP_DIAS 68; TEMP 96.1; TEMP 98.6; O2SAT 100; O2SAT 96
[2023-04-05] MEDS: BLOOD SUGAR DIAGNOSTIC 1 EACH STRIP VI SCH ×4 (07:30→22:15)
[2023-04-05] MEDS: GLUCERNA SHAKE 237 ML CAN PO SCH ×2 (07:37→17:44)
[2023-04-05] MEDS: DOCUSATE SODIUM 100 MG CAPSULE PO SCH (08:49)
[2023-04-05 15:48] LABS: EOSINOPHILS % (MANUAL) 2 % (0-4); LYMPHOCYTES % (MANUAL) 26 % (16-48); MONOCYTES % (MANUAL) 8 % (0-11.0); NEUTROPHILS % (MANUAL) 64 (42-76); PLATELET ESTIMATE ADEQU
[2023-04-05 15:49] LABS: ANISOCYTOSIS 1+
[2023-04-05 15:50] LABS: OVALOCYTES RARE; ROULEAUX RARE; TEAR DROP CELLS RARE
[2023-04-05 16:22] VITALS: BP 123/68; TEMP 96.1; O2SAT 96
[2023-04-05] MEDS: INSULIN REGULAR, HUMAN 100 UNIT/ML 3 ML VIAL SQ PRN (17:53)
[2023-04-05] MEDS: VANCOMYCIN 500 MG in IV D5W 100ml IV SCH (17:53)
[2023-04-05 20:00] VITALS: BP 129/59; TEMP 98.5; O2SAT 97
[2023-04-05] MEDS: SENNOSIDES 8.6 MG TABLET PO SCH (22:02)
[2023-04-05] MEDS: MIRTAZAPINE 15 MG TABLET PO SCH (22:02)
[2023-04-05] MEDS: *INSULIN REGULAR(HUMULIN R)HUM 100 UNIT/ML VIAL SQ PRN (22:20)
[2023-04-06] MEDS: VANCOMYCIN 500 MG in IV D5W 100ml IV SCH ×2 (06:18→18:31)
[2023-04-06] MEDS: BLOOD SUGAR DIAGNOSTIC 1 EACH STRIP VI SCH ×4 (06:32→21:23)
[2023-04-06 06:53] LABS: CREATININE 0.8 mg/dL (0.6-1.3); POTASSIUM 4.4 mmol/L (3.5-5.1)
[2023-04-06 06:57] LABS: CALCIUM, SERUM 8.6 mg/dL (8.5-10.1)
[2023-04-06] MEDS: INSULIN REGULAR, HUMAN 100 UNIT/ML 3 ML VIAL SQ PRN ×2 (07:26→12:42)
[2023-04-06 08:00] VITALS: BP 126/78; TEMP 98.2; O2SAT 98
[2023-04-06] MEDS: GLUCERNA SHAKE 237 ML CAN PO SCH ×2 (08:43→17:17)
[2023-04-06] MEDS: DOCUSATE SODIUM 100 MG CAPSULE PO SCH (09:29)
[2023-04-06 16:00] VITALS: BP 141/80; TEMP 98.6; O2SAT 99
[2023-04-06 20:00] VITALS: BP 125/76; TEMP 98; O2SAT 98
[2023-04-06] MEDS: SENNOSIDES 8.6 MG TABLET PO SCH (21:24)
[2023-04-06] MEDS: MIRTAZAPINE 15 MG TABLET PO SCH (21:24)
[2023-04-06] MEDS: *INSULIN REGULAR(HUMULIN R)HUM 100 UNIT/ML VIAL SQ PRN (21:27)
[2023-04-07 05:58] LABS: CALCIUM, SERUM 8.6 mg/dL (8.5-10.1); CREATININE 0.8 mg/dL (0.6-1.3); POTASSIUM 4.4 mmol/L (3.5-5.1)
[2023-04-07] MEDS: VANCOMYCIN 500 MG in IV D5W 100ml IV SCH ×2 (06:05→17:37)
[2023-04-07] MEDS: BLOOD SUGAR DIAGNOSTIC 1 EACH STRIP VI SCH ×4 (06:32→21:21)
[2023-04-07] MEDS: INSULIN REGULAR, HUMAN 100 UNIT/ML 3 ML VIAL SQ PRN ×4 (06:36→21:48)
[2023-04-07 07:30] VITALS: BP 130/68; TEMP 98.1; O2SAT 99
[2023-04-07] MEDS: DOCUSATE SODIUM 100 MG CAPSULE PO SCH (08:20)
[2023-04-07] MEDS: GLUCERNA SHAKE 237 ML CAN PO SCH ×2 (08:42→17:24)
[2023-04-07 16:00] VITALS: BP 129/75; TEMP 97.9; O2SAT 99
[2023-04-07 20:00] VITALS: BP 109/62; TEMP 97.3; O2SAT 95
[2023-04-07] MEDS: MIRTAZAPINE 15 MG TABLET PO SCH (21:44)
[2023-04-07] MEDS: SENNOSIDES 8.6 MG TABLET PO SCH (21:44)
[2023-04-08] MEDS: VANCOMYCIN 500 MG in IV D5W 100ml IV SCH ×2 (06:00→17:07)
[2023-04-08 06:27] LABS: CALCIUM, SERUM 9.1 mg/dL (8.5-10.1); CREATININE 0.7 mg/dL (0.6-1.3); POTASSIUM 3.9 mmol/L (3.5-5.1)
[2023-04-08] MEDS: BLOOD SUGAR DIAGNOSTIC 1 EACH STRIP VI SCH ×4 (06:35→22:13)
[2023-04-08] MEDS: INSULIN REGULAR, HUMAN 100 UNIT/ML 3 ML VIAL SQ PRN ×3 (06:39→16:46)
[2023-04-08] MEDS: GLUCERNA SHAKE 237 ML CAN PO SCH ×2 (08:34→16:45)
[2023-04-08] MEDS: DOCUSATE SODIUM 100 MG CAPSULE PO SCH (08:34)
[2023-04-08 16:00] VITALS: BP_SYST 123; BP_SYST 132; BP_DIAS 59; BP_DIAS 74; TEMP 97.4; TEMP 97.5; O2SAT 97; O2SAT 99
[2023-04-08 20:00] VITALS: BP 128/69; TEMP 97.6; O2SAT 99
[2023-04-08] MEDS: SENNOSIDES 8.6 MG TABLET PO SCH (22:04)
[2023-04-08] MEDS: MIRTAZAPINE 15 MG TABLET PO SCH (22:04)
[2023-04-08] MEDS: *INSULIN REGULAR(HUMULIN R)HUM 100 UNIT/ML VIAL SQ PRN (22:16)
[2023-04-09] MEDS: VANCOMYCIN 500 MG in IV D5W 100ml IV SCH (06:23)
[2023-04-09] MEDS: BLOOD SUGAR DIAGNOSTIC 1 EACH STRIP VI SCH ×3 (06:31→17:30)
[2023-04-09] MEDS: INSULIN REGULAR, HUMAN 100 UNIT/ML 3 ML VIAL SQ PRN ×2 (06:58→12:56)
[2023-04-09 07:00] VITALS: BP 122/71; TEMP 97.9; O2SAT 100
[2023-04-09 07:59] LABS: CALCIUM, SERUM 9.3 mg/dL (8.5-10.1); POTASSIUM 4.6 mmol/L (3.5-5.1)
[2023-04-09] MEDS: DOCUSATE SODIUM 100 MG CAPSULE PO SCH (08:33)
[2023-04-09] MEDS: GLUCERNA SHAKE 237 ML CAN PO SCH ×2 (08:33→17:00)
[2023-04-09] MEDS ORDERED: CLIN300C12 PO (10:36)
== END 2023-04-09 18:00 | DRG 603 ==
LOC: ER 01:22 → MED 10:31
PROVIDERS: ADMIT Internal Medicine; ATTEND Internal Medicine
PROC: 0H9CXZZ Drainage of Left Upper Arm Skin, External Approach (ICD-10-PCS; principal; 2023-04-04)
DX: L03.114 Cellulitis of left upper limb (principal); R64 Cachexia; G93.49 Other encephalopathy; Z68.1 Body mass index [BMI] 19.9 or less, adult; E44.0 Moderate protein-calorie malnutrition; L02.414 Cutaneous abscess of left upper limb; E11.649 Type 2 diabetes mellitus with hypoglycemia without coma; Z79.4 Long term (current) use of insulin; I10 Essential (primary) hypertension; Z79.84 Long term (current) use of oral hypoglycemic drugs; F03.90 Unspecified dementia, unspecified severity, without behavioral disturbance, psychotic disturbance, mood disturbance, and anxiety
CPT/HCPCS: 36415; 73090-TC; 80048-TC; 80202-TC; 82962-TC; 83735-TC; 84100-TC; 85025-TC; 87040-TC; A4223; A6253; G0378; J0692; J1815; J3370; J3490; J7060

== ENCOUNTER 2023-05-10 20:20 | Inpatient (IN) | payer MEDICARE, OTHER ==
[~2023-05-10] VITALS: Ht 152.4 cm; Wt 32.3 kg
[~2023-05-10 20:20] MED LIST changes: -AMOX-430 PO; +CLIN300C12 PO; +DEXT38GE12 PO; +IBUP-1957 PO
[2023-05-10 21:31] LABS: BASOPHILS % (AUTO) 0.1 % (0.0-2.0); EOSINOPHILS % (AUTO) 0.4 % (0.0-6.0); HEMATOCRIT 42 % (33-45); HEMOGLOBIN 13.5 g/dL (11.5-14.8); LYMPHOCYTES # (AUTO) 0.6 K/uL (0.8-4.8); LYMPHOCYTES % (AUTO) 10.1 % (20.0-44.0); MEAN CORPUSCULAR HEMOGLOBIN 28 PG (26.0-33.0); MEAN CORPUSCULAR HGB CONC 32 g/dl (31.0-36.0); MEAN CORPUSCULAR VOLUME 88 fL (82-100); MONOCYTES # (AUTO) 0.6 K/uL (0.1-1.30); MONOCYTES % (AUTO) 10.9 % (2.0-12.0); NEUTROPHILS # (AUTO) 4.5 K/uL (1.8-8.9); NEUTROPHILS % (AUTO) 78.5 % (43.0-81.0); PLATELET COUNT (AUTO) 217 K/uL (150-450); RED BLOOD CELL COUNT(AUTO) 4.75 MIL/uL (4.0-5.2); RED CELL DISTRIBUTION WIDTH 17.2 % (11.5-15.0); WHITE BLOOD COUNT (AUTO) 5.8 K/uL (4.3-11.0)
[2023-05-10 21:52] LABS: CALCIUM, SERUM 9.4 mg/dL (8.5-10.1); CARBON DIOXIDE 26 mmol/L (21-32); CHLORIDE 105 mmol/L (98-107); CREATININE 1.1 mg/dL (0.6-1.3); GLUCOSE 210 mg/dL (74-106); POTASSIUM 3.9 mmol/L (3.5-5.1); SODIUM SERUM 137 mmol/L (136-145); UREA NITROGEN, BLOOD 34 mg/dL (7-18)
[2023-05-10 22:06] LABS: NT-PRO BNP 22232 pg/mL (0-125)
[2023-05-10] MEDS ORDERED: FUROSEMIDE 40 MG/4 ML VIAL IV ONE (22:30)
[2023-05-10] MEDS ORDERED: CEFEPIME 1 GM VIAL ONE (22:47)
[2023-05-10] MEDS ORDERED: FUROSEMIDE 40 MG/4 ML VIAL ONE (22:47)
[2023-05-10] MEDS ORDERED: CEFEPIME 1 GM in IV D5W 50 ML IV ONE (23:00)
[2023-05-11] MEDS ORDERED: ACETAMINOPHEN 325 MG TABLET PO PRN (01:00)
[2023-05-11] MEDS ORDERED: ENOXAPARIN SODIUM 40 MG/0.4 ML DISP.SYRIN SQ SCH (01:00)
[2023-05-11] MEDS ORDERED: ONDANSETRON HCL/PF 4 MG/2 ML VIAL IVP PRN (01:00)
[2023-05-11] MEDS ORDERED: ENOXAPARIN SODIUM 30 MG/0.3 ML DISP.SYRIN ONE (04:24)
[2023-05-11] MEDS: ENOXAPARIN SODIUM 30 MG/0.3 ML DISP.SYRIN SQ SCH (04:28)
[2023-05-11] MEDS ORDERED: LEVO500T90 PO (07:41)
[2023-05-11] MEDS ORDERED: ZINC50TA69 PO (07:41)
[2023-05-11] MEDS ORDERED: INSU100V3 SQ (07:41)
[2023-05-11] MEDS ORDERED: FUROSEMIDE 20 MG/2 ML VIAL IV ONE (11:00)
[2023-05-11] MEDS ORDERED: FUROSEMIDE 40 MG/4 ML VIAL ONE (12:24)
[2023-05-11] MEDS ORDERED: DEXTROSE 50%-WATER 50 ML DISP.SYRIN IV PRN (16:00)
[2023-05-11] MEDS ORDERED: METFORMIN 500 MG TABLET PO SCH (17:00)
[2023-05-11] MEDS: BLOOD SUGAR DIAGNOSTIC 1 EACH STRIP IN SCH ×2 (17:39→21:24)
[2023-05-11] MEDS ORDERED: INSULIN REGULAR, HUMAN 100 UNIT/ML 10 ML VIAL ONE (17:44)
[2023-05-11] MEDS: INSULIN REGULAR, HUMAN 100 UNIT/ML 3 ML VIAL SQ PRN ×2 (17:51→21:22)
[2023-05-11] MEDS ORDERED: MIRTAZAPINE 15 MG TABLET ONE (20:43)
[2023-05-11] MEDS: MIRTAZAPINE 15 MG TABLET PO SCH (21:00)
[2023-05-12 04:10] VITALS: BP 129/72; TEMP 98.3; O2SAT 95
[2023-05-12 06:50] LABS: BASOPHILS % (AUTO) 0.1 % (0.0-2.0); EOSINOPHILS # (AUTO) 0.1 K/uL (0.0-0.7); EOSINOPHILS % (AUTO) 1.1 % (0.0-6.0); HEMATOCRIT 39 % (33-45); HEMOGLOBIN 12.7 g/dL (11.5-14.8); LYMPHOCYTES # (AUTO) 0.7 K/uL (0.8-4.8); MEAN CORPUSCULAR HEMOGLOBIN 28 PG (26.0-33.0); MEAN CORPUSCULAR HGB CONC 33 g/dl (31.0-36.0); MEAN CORPUSCULAR VOLUME 87 fL (82-100); MONOCYTES # (AUTO) 0.8 K/uL (0.1-1.30); MONOCYTES % (AUTO) 16.1 % (2.0-12.0); NEUTROPHILS # (AUTO) 3.1 K/uL (1.8-8.9); NEUTROPHILS % (AUTO) 67.7 % (43.0-81.0); PLATELET COUNT (AUTO) 193 K/uL (150-450); RED CELL DISTRIBUTION WIDTH 16.2 % (11.5-15.0); WHITE BLOOD COUNT (AUTO) 4.7 K/uL (4.3-11.0)
[2023-05-12 07:39] LABS: ALANINE AMINOTRANSFERASE 65 U/L (12-78); ALBUMIN 2.4 g/dL (3.4-5.0); ALKALINE PHOSPHATASE 368 U/L (46-116); ASPARTATE AMINOTRANSFERASE 30 U/L (15-37); BILIRUBIN,TOTAL 0.7 mg/dL (0.2-1.0); CALCIUM, SERUM 8.8 mg/dL (8.5-10.1); CARBON DIOXIDE 26 mmol/L (21-32); CHLORIDE 102 mmol/L (98-107); CREATININE 0.8 mg/dL (0.6-1.3); GLUCOSE 202 mg/dL (74-106); MAGNESIUM 2.2 mg/dL (1.8-2.4); PHOSPHORUS 2.9 mg/dL (2.5-4.9); POTASSIUM 3.6 mmol/L (3.5-5.1); SODIUM SERUM 137 mmol/L (136-145); TOTAL PROTEIN, SERUM 6.6 g/dL (6.4-8.2); UREA NITROGEN, BLOOD 31 mg/dL (7-18)
[2023-05-12 07:54] LABS: CHOLESTEROL 174 mg/dL (<200); HDL CHOLESTEROL 63 mg/dL (40-60); LDL 90 mg/dL (0-99); TRIGLYCERIDES 78 mg/dL (30-150)
[2023-05-12] MEDS: BLOOD SUGAR DIAGNOSTIC 1 EACH STRIP IN SCH ×4 (08:01→21:14)
[2023-05-12] MEDS: ENOXAPARIN SODIUM 30 MG/0.3 ML DISP.SYRIN SQ SCH (08:20)
[2023-05-12] MEDS: INSULIN REGULAR, HUMAN 100 UNIT/ML 3 ML VIAL SQ PRN ×4 (08:42→21:16)
[2023-05-12] MEDS: POTASSIUM CHLORIDE 20 MEQ TAB.PRT.SR PO SCH ×3 (11:05→13:46)
[2023-05-12] MEDS: FUROSEMIDE 40 MG/4 ML VIAL IV SCH ×2 (11:05→13:30)
[2023-05-12] MEDS: CARVEDILOL 6.25 MG TABLET PO SCH ×2 (11:05→20:39)
[2023-05-12] MEDS: LINAGLIPTIN 5 MG TABLET PO SCH (11:08)
[2023-05-12 13:04] LABS: LYMPHOCYTES % (MANUAL) 21 % (16-48); MONOCYTES % (MANUAL) 9 % (0-11.0); NEUTROPHILS % (MANUAL) 70 (42-76); PLATELET ESTIMATE ADEQUATE
[2023-05-12] MEDS ORDERED: FUROSEMIDE 40 MG/4 ML VIAL IV ONE (15:00)
[2023-05-12 20:00] VITALS: BP 97/65; TEMP 98; O2SAT 98
[2023-05-12] MEDS: MIRTAZAPINE 15 MG TABLET PO SCH (21:26)
[2023-05-13] VITALS: BP 108/69; TEMP 97.8; O2SAT 98
[2023-05-13] MEDS: BLOOD SUGAR DIAGNOSTIC 1 EACH STRIP IN SCH ×4 (06:49→21:59)
[2023-05-13] MEDS: INSULIN REGULAR, HUMAN 100 UNIT/ML 3 ML VIAL SQ PRN ×2 (06:50→17:41)
[2023-05-13 07:00] VITALS: BP 105/53; TEMP 98.2; O2SAT 97
[2023-05-13 07:31] LABS: BASOPHILS % (AUTO) 0.2 % (0.0-2.0); EOSINOPHILS # (AUTO) 0.1 K/uL (0.0-0.7); HEMATOCRIT 41 % (33-45); HEMOGLOBIN 13.5 g/dL (11.5-14.8); LYMPHOCYTES # (AUTO) 0.9 K/uL (0.8-4.8); LYMPHOCYTES % (AUTO) 14.5 % (20.0-44.0); MEAN CORPUSCULAR HEMOGLOBIN 29 PG (26.0-33.0); MEAN CORPUSCULAR HGB CONC 33 g/dl (31.0-36.0); MEAN CORPUSCULAR VOLUME 87 fL (82-100); MONOCYTES # (AUTO) 0.9 K/uL (0.1-1.30); MONOCYTES % (AUTO) 14.7 % (2.0-12.0); NEUTROPHILS # (AUTO) 4.4 K/uL (1.8-8.9); NEUTROPHILS % (AUTO) 69.6 % (43.0-81.0); PLATELET COUNT (AUTO) 199 K/uL (150-450); RED BLOOD CELL COUNT(AUTO) 4.72 MIL/uL (4.0-5.2); WHITE BLOOD COUNT (AUTO) 6.3 K/uL (4.3-11.0)
[2023-05-13 08:22] LABS: ALBUMIN 2.5 g/dL (3.4-5.0); BILIRUBIN,TOTAL 0.5 mg/dL (0.2-1.0); CALCIUM, SERUM 9.1 mg/dL (8.5-10.1); CREATININE 0.7 mg/dL (0.6-1.3); MAGNESIUM 2.1 mg/dL (1.8-2.4); PHOSPHORUS 3.3 mg/dL (2.5-4.9); POTASSIUM 3.8 mmol/L (3.5-5.1); TOTAL PROTEIN, SERUM 6.4 g/dL (6.4-8.2)
[2023-05-13] MEDS: CARVEDILOL 6.25 MG TABLET PO SCH ×2 (09:00→20:58)
[2023-05-13] MEDS: ENOXAPARIN SODIUM 30 MG/0.3 ML DISP.SYRIN SQ SCH (10:26)
[2023-05-13] MEDS: LINAGLIPTIN 5 MG TABLET PO SCH (10:27)
[2023-05-13 12:00] VITALS: BP 101/55; TEMP 98; O2SAT 96
[2023-05-13] MEDS: GLUCERNA SHAKE 237 ML CAN PO SCH ×2 (12:00→17:37)
[2023-05-13] MEDS: SPIRONOLACTONE 25 MG TABLET PO SCH (14:18)
[2023-05-13 16:00] VITALS: BP 112/65; TEMP 98; O2SAT 97
[2023-05-13] MEDS: MIRTAZAPINE 15 MG TABLET PO SCH (22:00)
[2023-05-14] MEDS: BLOOD SUGAR DIAGNOSTIC 1 EACH STRIP IN SCH ×6 (06:27→22:04)
[2023-05-14 08:00] VITALS: BP 112/60; TEMP 98.1; O2SAT 98
[2023-05-14] MEDS: ENOXAPARIN SODIUM 30 MG/0.3 ML DISP.SYRIN SQ SCH ×2 (09:00→09:18)
[2023-05-14] MEDS: CARVEDILOL 6.25 MG TABLET PO SCH ×2 (09:14→21:00)
[2023-05-14] MEDS: LINAGLIPTIN 5 MG TABLET PO SCH (09:15)
[2023-05-14] MEDS: SPIRONOLACTONE 25 MG TABLET PO SCH (09:15)
[2023-05-14] MEDS: GLUCERNA SHAKE 237 ML CAN PO SCH ×3 (09:15→17:53)
[2023-05-14 12:00] VITALS: BP 94/68; TEMP 98.3; O2SAT 94
[2023-05-14] MEDS ORDERED: INSULIN REGULAR, HUMAN 100 UNIT/ML 3 ML VIAL SQ ONE (12:30)
[2023-05-14] MEDS ORDERED: INSULIN REGULAR, HUMAN 100 UNIT/ML 3 ML VIAL SQ PRN (12:30)
[2023-05-14] MEDS ORDERED: DEXTROSE 50%-WATER 50 ML DISP.SYRIN IV PRN (12:30)
[2023-05-14 16:07] VITALS: BP 85/55; TEMP 98; O2SAT 98
[2023-05-14] MEDS: INSULIN REGULAR, HUMAN 100 UNIT/ML 3 ML VIAL SQ PRN ×2 (17:54→22:09)
[2023-05-14 20:00] VITALS: BP 105/59; TEMP 98.2; O2SAT 96
[2023-05-14 20:48] VITALS: BP 105/59; TEMP 98.2; O2SAT 96
[2023-05-14] MEDS: MIRTAZAPINE 15 MG TABLET PO SCH (22:00)
[2023-05-15] VITALS (7 sets, daily range): BP systolic 91–108; BP diastolic 51–68; TEMP 97.5–98.4; O2SAT 96–99
[2023-05-15] MEDS: BLOOD SUGAR DIAGNOSTIC 1 EACH STRIP IN SCH ×5 (06:38→23:43)
[2023-05-15] MEDS: INSULIN REGULAR, HUMAN 100 UNIT/ML 3 ML VIAL SQ PRN ×3 (06:41→17:11)
[2023-05-15] MEDS: GLUCERNA SHAKE 237 ML CAN PO SCH ×3 (08:00→17:09)
[2023-05-15] MEDS: CARVEDILOL 6.25 MG TABLET PO SCH ×2 (09:00→21:00)
[2023-05-15] MEDS: LINAGLIPTIN 5 MG TABLET PO SCH (09:15)
[2023-05-15] MEDS: SPIRONOLACTONE 25 MG TABLET PO SCH (09:15)
[2023-05-15] MEDS: ENOXAPARIN SODIUM 30 MG/0.3 ML DISP.SYRIN SQ SCH (09:17)
[2023-05-15] MEDS ORDERED: BLOOD SUGAR DIAGNOSTIC 1 EACH STRIP IN SCH (13:00)
[2023-05-15] MEDS: MIRTAZAPINE 15 MG TABLET PO SCH (22:24)
[2023-05-15] MEDS: INSULIN GLARGINE, 100 UNIT/ML CARTRIDGE SQ SCH (22:27)
[2023-05-16] MEDS: DEXTROSE 50%-WATER 50 ML DISP.SYRIN IV PRN (05:46)
[2023-05-16] MEDS: BLOOD SUGAR DIAGNOSTIC 1 EACH STRIP IN SCH ×4 (05:51→23:11)
[2023-05-16] MEDS: GLUCERNA SHAKE 237 ML CAN PO SCH ×3 (08:18→17:15)
[2023-05-16] MEDS: CARVEDILOL 6.25 MG TABLET PO SCH ×2 (09:00→21:00)
[2023-05-16 09:23] VITALS: BP 104/71; TEMP 97.7; O2SAT 100
[2023-05-16] MEDS: LINAGLIPTIN 5 MG TABLET PO SCH (09:49)
[2023-05-16] MEDS: SPIRONOLACTONE 25 MG TABLET PO SCH (09:49)
[2023-05-16] MEDS: ENOXAPARIN SODIUM 30 MG/0.3 ML DISP.SYRIN SQ SCH (09:50)
[2023-05-16] MEDS: INSULIN REGULAR, HUMAN 100 UNIT/ML 3 ML VIAL SQ PRN ×2 (11:42→17:27)
[2023-05-16 16:00] VITALS: BP 96/64; TEMP 98.2; O2SAT 98
[2023-05-16 20:00] VITALS: BP 104/65; TEMP 97.8; O2SAT 96
[2023-05-16] MEDS: MIRTAZAPINE 15 MG TABLET PO SCH (21:10)
[2023-05-16] MEDS: INSULIN GLARGINE, 100 UNIT/ML CARTRIDGE SQ SCH (22:00)
[2023-05-17] MEDS: BLOOD SUGAR DIAGNOSTIC 1 EACH STRIP IN SCH ×3 (06:35→17:21)
[2023-05-17] MEDS: INSULIN REGULAR, HUMAN 100 UNIT/ML 3 ML VIAL SQ PRN ×3 (06:44→17:24)
[2023-05-17] MEDS: GLUCERNA SHAKE 237 ML CAN PO SCH ×3 (08:18→17:20)
[2023-05-17] MEDS: LINAGLIPTIN 5 MG TABLET PO SCH (08:21)
[2023-05-17] MEDS: ASPIRIN 81 MG TAB.CHEW PO SCH (08:21)
[2023-05-17] MEDS: SPIRONOLACTONE 25 MG TABLET PO SCH (08:21)
[2023-05-17] MEDS: ENOXAPARIN SODIUM 30 MG/0.3 ML DISP.SYRIN SQ SCH (08:24)
[2023-05-17 08:27] VITALS: BP 91/54; TEMP 97.6; O2SAT 100
[2023-05-17 15:54] VITALS: BP 103/64; TEMP 97.5; O2SAT 100
[2023-05-17 19:59] VITALS: BP 101/50; TEMP 98.6; O2SAT 100
[2023-05-17 20:00] VITALS: BP 101/50; TEMP 98.6; O2SAT 100
[2023-05-17] MEDS: MIRTAZAPINE 15 MG TABLET PO SCH (22:20)
[2023-05-17] MEDS: INSULIN GLARGINE, 100 UNIT/ML CARTRIDGE SQ SCH (22:21)
[2023-05-18] MEDS: INSULIN REGULAR, HUMAN 100 UNIT/ML 3 ML VIAL SQ PRN ×4 (00:02→17:37)
[2023-05-18] MEDS: BLOOD SUGAR DIAGNOSTIC 1 EACH STRIP IN SCH ×4 (06:42→17:35)
[2023-05-18] MEDS: GLUCERNA SHAKE 237 ML CAN PO SCH ×3 (07:38→16:47)
[2023-05-18 08:00] VITALS: BP 100/60; TEMP 97.7; O2SAT 99
[2023-05-18] MEDS: SPIRONOLACTONE 25 MG TABLET PO SCH (08:11)
[2023-05-18] MEDS: LINAGLIPTIN 5 MG TABLET PO SCH (08:11)
[2023-05-18] MEDS: ASPIRIN 81 MG TAB.CHEW PO SCH (08:11)
[2023-05-18] MEDS: ENOXAPARIN SODIUM 30 MG/0.3 ML DISP.SYRIN SQ SCH (08:13)
[2023-05-18 16:00] VITALS: BP 92/54; TEMP 98.2; O2SAT 99
[2023-05-18 20:00] VITALS: BP 103/58; TEMP 97.9; O2SAT 99
[2023-05-18] MEDS: INSULIN GLARGINE, 100 UNIT/ML CARTRIDGE SQ SCH (22:00)
[2023-05-18] MEDS: MIRTAZAPINE 15 MG TABLET PO SCH (22:18)
[2023-05-19] MEDS: BLOOD SUGAR DIAGNOSTIC 1 EACH STRIP IN SCH ×4 (00:19→17:55)
[2023-05-19] MEDS: INSULIN REGULAR, HUMAN 100 UNIT/ML 3 ML VIAL SQ PRN ×4 (00:20→17:56)
[2023-05-19 07:54] LABS: BASOPHILS % (AUTO) 0.4 % (0.0-2.0); EOSINOPHILS # (AUTO) 0.1 K/uL (0.0-0.7); EOSINOPHILS % (AUTO) 1.2 % (0.0-6.0); HEMATOCRIT 43 % (33-45); HEMOGLOBIN 13.9 g/dL (11.5-14.8); LYMPHOCYTES # (AUTO) 1.2 K/uL (0.8-4.8); LYMPHOCYTES % (AUTO) 21.4 % (20.0-44.0); MEAN CORPUSCULAR HEMOGLOBIN 29 PG (26.0-33.0); MEAN CORPUSCULAR HGB CONC 33 g/dl (31.0-36.0); MEAN CORPUSCULAR VOLUME 88 fL (82-100); MONOCYTES # (AUTO) 1.2 K/uL (0.1-1.30); MONOCYTES % (AUTO) 20.9 % (2.0-12.0); NEUTROPHILS # (AUTO) 3.2 K/uL (1.8-8.9); NEUTROPHILS % (AUTO) 56.1 % (43.0-81.0); PLATELET COUNT (AUTO) 179 K/uL (150-450); RED BLOOD CELL COUNT(AUTO) 4.85 MIL/uL (4.0-5.2); WHITE BLOOD COUNT (AUTO) 5.7 K/uL (4.3-11.0)
[2023-05-19] MEDS: LINAGLIPTIN 5 MG TABLET PO SCH (08:06)
[2023-05-19] MEDS: SPIRONOLACTONE 25 MG TABLET PO SCH (08:06)
[2023-05-19] MEDS: ASPIRIN 81 MG TAB.CHEW PO SCH (08:06)
[2023-05-19] MEDS: GLUCERNA SHAKE 237 ML CAN PO SCH ×3 (08:06→17:43)
[2023-05-19] MEDS: ENOXAPARIN SODIUM 30 MG/0.3 ML DISP.SYRIN SQ SCH (08:07)
[2023-05-19 08:26] VITALS: BP 86/46; TEMP 97.9; O2SAT 100
[2023-05-19 08:47] LABS: CALCIUM, SERUM 8.7 mg/dL (8.5-10.1); CREATININE 0.6 mg/dL (0.6-1.3); MAGNESIUM 2.5 mg/dL (1.8-2.4); PHOSPHORUS 3.9 mg/dL (2.5-4.9); POTASSIUM 5.6 mmol/L (3.5-5.1)
[2023-05-19 12:44] LABS: ANISOCYTOSIS 1+; BASOPHILS % (MANUAL) 0 % (0.0-2.0); EOSINOPHILS % (MANUAL) 2 % (0-4); LYMPHOCYTES % (MANUAL) 16 % (16-48); MONOCYTES % (MANUAL) 15 % (0-11.0); NEUTROPHILS % (MANUAL) 67 (42-76); PLATELET ESTIMATE ADEQUATE
[2023-05-19 15:59] VITALS: BP 92/59; TEMP 97.7; O2SAT 99
[2023-05-19 20:00] VITALS: BP 109/60; TEMP 98.2; O2SAT 99
[2023-05-19] MEDS: MIRTAZAPINE 15 MG TABLET PO SCH (21:45)
[2023-05-19 22:00] VITALS: BP 109/60; TEMP 98.2; O2SAT 99
[2023-05-19] MEDS: INSULIN GLARGINE, 100 UNIT/ML CARTRIDGE SQ SCH (22:04)
[2023-05-20] MEDS: BLOOD SUGAR DIAGNOSTIC 1 EACH STRIP IN SCH ×4 (00:33→17:33)
[2023-05-20] MEDS: INSULIN REGULAR, HUMAN 100 UNIT/ML 3 ML VIAL SQ PRN ×5 (00:34→22:04)
[2023-05-20 07:00] VITALS: BP 111/59; TEMP 97.5; O2SAT 100
[2023-05-20 07:35] LABS: BASOPHILS % (AUTO) 0.4 % (0.0-2.0); EOSINOPHILS % (AUTO) 0.7 % (0.0-6.0); HEMATOCRIT 41 % (33-45); HEMOGLOBIN 13.3 g/dL (11.5-14.8); LYMPHOCYTES # (AUTO) 1.1 K/uL (0.8-4.8); LYMPHOCYTES % (AUTO) 16.6 % (20.0-44.0); MEAN CORPUSCULAR HEMOGLOBIN 29 PG (26.0-33.0); MEAN CORPUSCULAR HGB CONC 33 g/dl (31.0-36.0); MEAN CORPUSCULAR VOLUME 87 fL (82-100); MONOCYTES # (AUTO) 1.3 K/uL (0.1-1.30); MONOCYTES % (AUTO) 19.2 % (2.0-12.0); NEUTROPHILS # (AUTO) 4.3 K/uL (1.8-8.9); NEUTROPHILS % (AUTO) 63.1 % (43.0-81.0); PLATELET COUNT (AUTO) 211 K/uL (150-450); RED BLOOD CELL COUNT(AUTO) 4.67 MIL/uL (4.0-5.2); WHITE BLOOD COUNT (AUTO) 6.8 K/uL (4.3-11.0)
[2023-05-20] MEDS: LINAGLIPTIN 5 MG TABLET PO SCH (08:09)
[2023-05-20] MEDS: ASPIRIN 81 MG TAB.CHEW PO SCH (08:09)
[2023-05-20] MEDS: GLUCERNA SHAKE 237 ML CAN PO SCH ×3 (08:09→17:33)
[2023-05-20] MEDS: ENOXAPARIN SODIUM 30 MG/0.3 ML DISP.SYRIN SQ SCH (08:10)
[2023-05-20 09:10] LABS: CALCIUM, SERUM 9.2 mg/dL (8.5-10.1); CREATININE 0.6 mg/dL (0.6-1.3); MAGNESIUM 2.5 mg/dL (1.8-2.4)
[2023-05-20 09:16] LABS: ANISOCYTOSIS 1+; LYMPHOCYTES % (MANUAL) 14 % (16-48); MONOCYTES % (MANUAL) 23 % (0-11.0); NEUTROPHILS % (MANUAL) 63 (42-76); PLATELET ESTIMATE ADEQUATE
[2023-05-20 16:00] VITALS: BP 100/62; TEMP 98; O2SAT 100
[2023-05-20 20:00] VITALS: BP 153/67; TEMP 98.3; O2SAT 99
[2023-05-20] MEDS: MIRTAZAPINE 15 MG TABLET PO SCH (21:54)
[2023-05-20] MEDS: INSULIN GLARGINE, 100 UNIT/ML CARTRIDGE SQ SCH (22:02)
[2023-05-21] MEDS: BLOOD SUGAR DIAGNOSTIC 1 EACH STRIP IN SCH ×4 (00:48→16:54)
[2023-05-21] MEDS: INSULIN REGULAR, HUMAN 100 UNIT/ML 3 ML VIAL SQ PRN ×3 (00:50→16:54)
[2023-05-21 07:22] LABS: BASOPHILS % (AUTO) 0.5 % (0.0-2.0); EOSINOPHILS # (AUTO) 0.1 K/uL (0.0-0.7); EOSINOPHILS % (AUTO) 1.9 % (0.0-6.0); HEMATOCRIT 41 % (33-45); HEMOGLOBIN 13.3 g/dL (11.5-14.8); LYMPHOCYTES # (AUTO) 1.1 K/uL (0.8-4.8); LYMPHOCYTES % (AUTO) 22.4 % (20.0-44.0); MEAN CORPUSCULAR HEMOGLOBIN 29 PG (26.0-33.0); MEAN CORPUSCULAR HGB CONC 33 g/dl (31.0-36.0); MEAN CORPUSCULAR VOLUME 88 fL (82-100); MONOCYTES # (AUTO) 0.9 K/uL (0.1-1.30); MONOCYTES % (AUTO) 19.1 % (2.0-12.0); NEUTROPHILS # (AUTO) 2.7 K/uL (1.8-8.9); NEUTROPHILS % (AUTO) 56.1 % (43.0-81.0); PLATELET COUNT (AUTO) 160 K/uL (150-450); RED BLOOD CELL COUNT(AUTO) 4.66 MIL/uL (4.0-5.2); RED CELL DISTRIBUTION WIDTH 15.9 % (11.5-15.0); WHITE BLOOD COUNT (AUTO) 4.9 K/uL (4.3-11.0)
[2023-05-21 07:31] LABS: CALCIUM, SERUM 9.3 mg/dL (8.5-10.1); CARBON DIOXIDE 19 mmol/L (21-32); CHLORIDE 104 mmol/L (98-107); CREATININE 0.6 mg/dL (0.6-1.3); GLUCOSE 105 mg/dL (74-106); MAGNESIUM 2.8 mg/dL (1.8-2.4); PHOSPHORUS 3.7 mg/dL (2.5-4.9); POTASSIUM 4.7 mmol/L (3.5-5.1); SODIUM SERUM 132 mmol/L (136-145); UREA NITROGEN, BLOOD 28 mg/dL (7-18)
[2023-05-21 08:00] VITALS: BP 109/60; TEMP 98.4; O2SAT 97
[2023-05-21] MEDS: LINAGLIPTIN 5 MG TABLET PO SCH (09:01)
[2023-05-21] MEDS: ASPIRIN 81 MG TAB.CHEW PO SCH (09:01)
[2023-05-21] MEDS: ENOXAPARIN SODIUM 30 MG/0.3 ML DISP.SYRIN SQ SCH (09:02)
[2023-05-21] MEDS: GLUCERNA SHAKE 237 ML CAN PO SCH ×3 (09:04→16:20)
[2023-05-21 13:12] LABS: LYMPHOCYTES % (MANUAL) 25 % (16-48); MONOCYTES % (MANUAL) 12 % (0-11.0); NEUTROPHILS % (MANUAL) 63 (42-76); PLATELET ESTIMATE ADEQUATE
[2023-05-21 16:00] VITALS: BP 100/60; TEMP 98.8; O2SAT 96
[2023-05-21 20:00] VITALS: BP 110/62; TEMP 98; O2SAT 99
[2023-05-21] MEDS: MIRTAZAPINE 15 MG TABLET PO SCH ×2 (22:00→22:09)
[2023-05-21] MEDS: INSULIN GLARGINE, 100 UNIT/ML CARTRIDGE SQ SCH (22:00)
[2023-05-22] MEDS: BLOOD SUGAR DIAGNOSTIC 1 EACH STRIP IN SCH ×4 (06:00→17:03)
[2023-05-22 07:15] LABS: CALCIUM, SERUM 8.9 mg/dL (8.5-10.1); CREATININE 0.6 mg/dL (0.6-1.3); MAGNESIUM 2.2 mg/dL (1.8-2.4); PHOSPHORUS 2.8 mg/dL (2.5-4.9); POTASSIUM 4.4 mmol/L (3.5-5.1)
[2023-05-22 07:19] LABS: BASOPHILS % (AUTO) 0.4 % (0.0-2.0); EOSINOPHILS # (AUTO) 0.1 K/uL (0.0-0.7); EOSINOPHILS % (AUTO) 1.2 % (0.0-6.0); HEMATOCRIT 38 % (33-45); HEMOGLOBIN 12.6 g/dL (11.5-14.8); LYMPHOCYTES # (AUTO) 0.9 K/uL (0.8-4.8); LYMPHOCYTES % (AUTO) 19.2 % (20.0-44.0); MEAN CORPUSCULAR HEMOGLOBIN 29 PG (26.0-33.0); MEAN CORPUSCULAR HGB CONC 33 g/dl (31.0-36.0); MEAN CORPUSCULAR VOLUME 87 fL (82-100); MONOCYTES % (AUTO) 20.4 % (2.0-12.0); NEUTROPHILS # (AUTO) 2.8 K/uL (1.8-8.9); NEUTROPHILS % (AUTO) 58.8 % (43.0-81.0); PLATELET COUNT (AUTO) 173 K/uL (150-450); RED BLOOD CELL COUNT(AUTO) 4.33 MIL/uL (4.0-5.2); RED CELL DISTRIBUTION WIDTH 15.8 % (11.5-15.0); WHITE BLOOD COUNT (AUTO) 4.8 K/uL (4.3-11.0)
[2023-05-22 07:30] VITALS: BP 130/94; TEMP 98.4; O2SAT 99
[2023-05-22 07:43] LABS: THYROID STIMULATING HORMONE 2.282 uIU/mL (0.358-3.74); URIC ACID 3.2 mg/dL (2.6-7.2)
[2023-05-22] MEDS: GLUCERNA SHAKE 237 ML CAN PO SCH ×3 (08:39→17:03)
[2023-05-22] MEDS: ASPIRIN 81 MG TAB.CHEW PO SCH (09:59)
[2023-05-22] MEDS: LINAGLIPTIN 5 MG TABLET PO SCH (09:59)
[2023-05-22] MEDS: ENOXAPARIN SODIUM 30 MG/0.3 ML DISP.SYRIN SQ SCH (10:01)
[2023-05-22 11:35] LABS: LYMPHOCYTES % (MANUAL) 25 % (16-48); MONOCYTES % (MANUAL) 18 % (0-11.0); NEUTROPHILS % (MANUAL) 57 (42-76); PLATELET ESTIMATE ADEQUATE
[2023-05-22] MEDS: INSULIN REGULAR, HUMAN 100 UNIT/ML 3 ML VIAL SQ PRN (13:36)
[2023-05-22 20:00] VITALS: BP 109/56; TEMP 98.8; O2SAT 97
[2023-05-22] MEDS: INSULIN GLARGINE, 100 UNIT/ML CARTRIDGE SQ SCH (22:00)
[2023-05-22] MEDS: MIRTAZAPINE 15 MG TABLET PO SCH (22:55)
[2023-05-23] MEDS: BLOOD SUGAR DIAGNOSTIC 1 EACH STRIP IN SCH ×5 (06:00→23:06)
[2023-05-23] MEDS: LINAGLIPTIN 5 MG TABLET PO SCH (08:36)
[2023-05-23] MEDS: ASPIRIN 81 MG TAB.CHEW PO SCH (08:36)
[2023-05-23] MEDS: GLUCERNA SHAKE 237 ML CAN PO SCH ×3 (08:36→17:11)
[2023-05-23 08:39] VITALS: BP 100/60; TEMP 97.5; O2SAT 100
[2023-05-23] MEDS: ENOXAPARIN SODIUM 30 MG/0.3 ML DISP.SYRIN SQ SCH (08:40)
[2023-05-23] MEDS ORDERED: SPIR25TA PO (09:57)
[2023-05-23] MEDS: INSULIN REGULAR, HUMAN 100 UNIT/ML 3 ML VIAL SQ PRN ×2 (11:18→17:10)
[2023-05-23 16:27] VITALS: BP 97/76; TEMP 97.6; O2SAT 100
[2023-05-23 20:00] VITALS: BP 111/55; TEMP 97.7; O2SAT 99
[2023-05-23] MEDS: MIRTAZAPINE 15 MG TABLET PO SCH (21:25)
[2023-05-23] MEDS: INSULIN GLARGINE, 100 UNIT/ML CARTRIDGE SQ SCH (21:25)
[2023-05-24] MEDS: BLOOD SUGAR DIAGNOSTIC 1 EACH STRIP IN SCH ×4 (06:07→23:59)
[2023-05-24] MEDS: INSULIN REGULAR, HUMAN 100 UNIT/ML 3 ML VIAL SQ PRN ×3 (06:10→17:16)
[2023-05-24 07:10] LABS: BASOPHILS % (AUTO) 0.6 % (0.0-2.0); EOSINOPHILS # (AUTO) 0.1 K/uL (0.0-0.7); EOSINOPHILS % (AUTO) 1.5 % (0.0-6.0); HEMATOCRIT 37 % (33-45); HEMOGLOBIN 12.3 g/dL (11.5-14.8); LYMPHOCYTES % (AUTO) 26.2 % (20.0-44.0); MEAN CORPUSCULAR HEMOGLOBIN 29 PG (26.0-33.0); MEAN CORPUSCULAR HGB CONC 33 g/dl (31.0-36.0); MEAN CORPUSCULAR VOLUME 87 fL (82-100); MONOCYTES # (AUTO) 0.7 K/uL (0.1-1.30); MONOCYTES % (AUTO) 18.4 % (2.0-12.0); NEUTROPHILS # (AUTO) 2.1 K/uL (1.8-8.9); NEUTROPHILS % (AUTO) 53.3 % (43.0-81.0); PLATELET COUNT (AUTO) 178 K/uL (150-450); WHITE BLOOD COUNT (AUTO) 3.9 K/uL (4.3-11.0)
[2023-05-24 07:33] LABS: ALBUMIN 2.7 g/dL (3.4-5.0); BILIRUBIN,TOTAL 0.3 mg/dL (0.2-1.0); CREATININE 0.6 mg/dL (0.6-1.3); MAGNESIUM 2.5 mg/dL (1.8-2.4); PHOSPHORUS 3.2 mg/dL (2.5-4.9); POTASSIUM 4.5 mmol/L (3.5-5.1); TOTAL PROTEIN, SERUM 6.7 g/dL (6.4-8.2)
[2023-05-24 07:58] LABS: THYROID STIMULATING HORMONE 3.047 uIU/mL (0.358-3.74)
[2023-05-24 08:28] VITALS: BP 107/62; TEMP 98.1; O2SAT 96
[2023-05-24] MEDS: ASPIRIN 81 MG TAB.CHEW PO SCH (08:40)
[2023-05-24] MEDS: GLUCERNA SHAKE 237 ML CAN PO SCH ×3 (08:40→17:15)
[2023-05-24] MEDS: LINAGLIPTIN 5 MG TABLET PO SCH (08:40)
[2023-05-24] MEDS: ENOXAPARIN SODIUM 30 MG/0.3 ML DISP.SYRIN SQ SCH (08:42)
[2023-05-24 11:40] LABS: ANISOCYTOSIS 1+; BASOPHILS % (MANUAL) 0 % (0.0-2.0); EOSINOPHILS % (MANUAL) 0 % (0-4); LYMPHOCYTES % (MANUAL) 21 % (16-48); MONOCYTES % (MANUAL) 14 % (0-11.0); NEUTROPHILS % (MANUAL) 65 (42-76); PLATELET ESTIMATE ADEQUATE
[2023-05-24 16:14] VITALS: BP 94/60; TEMP 98.5; O2SAT 100
[2023-05-24 16:15] VITALS: TEMP 98
[2023-05-24 20:00] VITALS: BP 104/68; TEMP 97.9; O2SAT 95
[2023-05-24] MEDS: MIRTAZAPINE 15 MG TABLET PO SCH (21:18)
[2023-05-24] MEDS: INSULIN GLARGINE, 100 UNIT/ML CARTRIDGE SQ SCH (21:29)
[2023-05-25] MEDS: BLOOD SUGAR DIAGNOSTIC 1 EACH STRIP IN SCH ×3 (05:15→17:38)
[2023-05-25] MEDS: DEXTROSE 50%-WATER 50 ML DISP.SYRIN IV PRN (05:23)
[2023-05-25 07:29] LABS: BASOPHILS % (AUTO) 0.3 % (0.0-2.0); EOSINOPHILS % (AUTO) 0.8 % (0.0-6.0); HEMATOCRIT 37 % (33-45); HEMOGLOBIN 12.3 g/dL (11.5-14.8); LYMPHOCYTES # (AUTO) 0.5 K/uL (0.8-4.8); LYMPHOCYTES % (AUTO) 12.6 % (20.0-44.0); MEAN CORPUSCULAR HEMOGLOBIN 29 PG (26.0-33.0); MEAN CORPUSCULAR HGB CONC 33 g/dl (31.0-36.0); MEAN CORPUSCULAR VOLUME 88 fL (82-100); MONOCYTES # (AUTO) 0.5 K/uL (0.1-1.30); NEUTROPHILS % (AUTO) 73.3 % (43.0-81.0); PLATELET COUNT (AUTO) 179 K/uL (150-450); RED BLOOD CELL COUNT(AUTO) 4.25 MIL/uL (4.0-5.2); RED CELL DISTRIBUTION WIDTH 15.5 % (11.5-15.0); WHITE BLOOD COUNT (AUTO) 4.1 K/uL (4.3-11.0)
[2023-05-25 08:00] VITALS: BP 114/73; TEMP 98.1; O2SAT 94
[2023-05-25] MEDS: LINAGLIPTIN 5 MG TABLET PO SCH (09:00)
[2023-05-25] MEDS: ENOXAPARIN SODIUM 30 MG/0.3 ML DISP.SYRIN SQ SCH (09:00)
[2023-05-25] MEDS: ASPIRIN 81 MG TAB.CHEW PO SCH (09:00)
[2023-05-25 09:10] LABS: ALBUMIN 2.8 g/dL (3.4-5.0); BILIRUBIN,TOTAL 0.3 mg/dL (0.2-1.0); CALCIUM, SERUM 9.2 mg/dL (8.5-10.1); CREATININE 0.6 mg/dL (0.6-1.3); POTASSIUM 4.5 mmol/L (3.5-5.1); TOTAL PROTEIN, SERUM 7.1 g/dL (6.4-8.2)
[2023-05-25] MEDS: GLUCERNA SHAKE 237 ML CAN PO SCH ×3 (09:15→17:39)
[2023-05-25] MEDS: INSULIN REGULAR, HUMAN 100 UNIT/ML 3 ML VIAL SQ PRN (12:29)
[2023-05-25 16:00] VITALS: BP_SYST 113; BP_SYST 114; BP_DIAS 73; BP_DIAS 84; TEMP 97.9; TEMP 98.1; O2SAT 94; O2SAT 99
[2023-05-25 20:00] VITALS: BP 128/65; TEMP 97.7; O2SAT 99
[2023-05-25] MEDS: MIRTAZAPINE 15 MG TABLET PO SCH (21:34)
[2023-05-25] MEDS: INSULIN GLARGINE, 100 UNIT/ML CARTRIDGE SQ SCH (22:12)
[2023-05-26] MEDS: BLOOD SUGAR DIAGNOSTIC 1 EACH STRIP IN SCH ×7 (01:45→23:50)
[2023-05-26] MEDS: INSULIN REGULAR, HUMAN 100 UNIT/ML 3 ML VIAL SQ PRN ×2 (01:47→21:53)
[2023-05-26] MEDS: DEXTROSE 50%-WATER 50 ML DISP.SYRIN IV PRN (06:26)
[2023-05-26 07:30] VITALS: BP 122/63; TEMP 98.2; O2SAT 96
[2023-05-26] MEDS: GLUCERNA SHAKE 237 ML CAN PO SCH ×3 (08:08→17:30)
[2023-05-26] MEDS: LINAGLIPTIN 5 MG TABLET PO SCH (08:08)
[2023-05-26] MEDS: ASPIRIN 81 MG TAB.CHEW PO SCH (08:08)
[2023-05-26] MEDS: ENOXAPARIN SODIUM 30 MG/0.3 ML DISP.SYRIN SQ SCH (08:10)
[2023-05-26 16:00] VITALS: BP 113/59; TEMP 98.7; O2SAT 99
[2023-05-26 20:00] VITALS: BP_SYST 98; BP_DIAS 41; BP_DIAS 52; TEMP 97.8; TEMP 98.2; O2SAT 96; O2SAT 97
[2023-05-26] MEDS: MIRTAZAPINE 15 MG TABLET PO SCH (21:34)
[2023-05-26] MEDS: INSULIN GLARGINE, 100 UNIT/ML CARTRIDGE SQ SCH (21:38)
[2023-05-27] MEDS: BLOOD SUGAR DIAGNOSTIC 1 EACH STRIP IN SCH ×7 (06:02→22:48)
[2023-05-27] MEDS: INSULIN REGULAR, HUMAN 100 UNIT/ML 3 ML VIAL SQ PRN (06:44)
[2023-05-27 08:00] VITALS: BP 115/67; TEMP 98.4; O2SAT 100
[2023-05-27] MEDS: GLUCERNA SHAKE 237 ML CAN PO SCH ×3 (08:00→17:54)
[2023-05-27] MEDS: LINAGLIPTIN 5 MG TABLET PO SCH (10:31)
[2023-05-27] MEDS: ASPIRIN 81 MG TAB.CHEW PO SCH (10:31)
[2023-05-27] MEDS: ENOXAPARIN SODIUM 30 MG/0.3 ML DISP.SYRIN SQ SCH (10:32)
[2023-05-27 16:00] VITALS: BP 113/61; TEMP 98; O2SAT 98
[2023-05-27 20:00] VITALS: BP 104/50; TEMP 98; O2SAT 98
[2023-05-27] MEDS: MIRTAZAPINE 15 MG TABLET PO SCH (21:05)
[2023-05-27] MEDS: INSULIN GLARGINE, 100 UNIT/ML CARTRIDGE SQ SCH (22:52)
[2023-05-28] MEDS: BLOOD SUGAR DIAGNOSTIC 1 EACH STRIP IN SCH ×7 (06:00→22:00)
[2023-05-28 08:00] VITALS: BP 109/61; TEMP 97.6; O2SAT 99
[2023-05-28] MEDS: GLUCERNA SHAKE 237 ML CAN PO SCH ×3 (08:23→16:50)
[2023-05-28] MEDS: LINAGLIPTIN 5 MG TABLET PO SCH (08:32)
[2023-05-28] MEDS: ASPIRIN 81 MG TAB.CHEW PO SCH (08:33)
[2023-05-28] MEDS: ENOXAPARIN SODIUM 30 MG/0.3 ML DISP.SYRIN SQ SCH (08:34)
[2023-05-28] MEDS ORDERED: KEY,NONCONTROL,TO KEEP IN PYXI 1 EA MC ONE (12:30)
[2023-05-28] MEDS: INSULIN REGULAR, HUMAN 100 UNIT/ML 3 ML VIAL SQ PRN ×3 (12:41→23:25)
[2023-05-28 16:00] VITALS: BP 100/60; TEMP 97.9; O2SAT 99
[2023-05-28 20:00] VITALS: BP 108/91; TEMP 99.1; O2SAT 100
[2023-05-28] MEDS: MIRTAZAPINE 15 MG TABLET PO SCH (22:55)
[2023-05-28] MEDS: INSULIN GLARGINE, 100 UNIT/ML CARTRIDGE SQ SCH (23:22)
[2023-05-29] MEDS: DEXTROSE 50%-WATER 50 ML DISP.SYRIN IV PRN (06:28)
[2023-05-29] MEDS: BLOOD SUGAR DIAGNOSTIC 1 EACH STRIP IN SCH ×4 (07:00→22:04)
[2023-05-29 07:52] LABS: BASOPHILS % (AUTO) 0.3 % (0.0-2.0); EOSINOPHILS # (AUTO) 0.1 K/uL (0.0-0.7); HEMATOCRIT 33 % (33-45); HEMOGLOBIN 10.8 g/dL (11.5-14.8); LYMPHOCYTES # (AUTO) 0.8 K/uL (0.8-4.8); LYMPHOCYTES % (AUTO) 19.7 % (20.0-44.0); MEAN CORPUSCULAR HEMOGLOBIN 29 PG (26.0-33.0); MEAN CORPUSCULAR HGB CONC 33 g/dl (31.0-36.0); MEAN CORPUSCULAR VOLUME 87 fL (82-100); MONOCYTES # (AUTO) 0.8 K/uL (0.1-1.30); MONOCYTES % (AUTO) 19.7 % (2.0-12.0); NEUTROPHILS # (AUTO) 2.4 K/uL (1.8-8.9); NEUTROPHILS % (AUTO) 58.3 % (43.0-81.0); PLATELET COUNT (AUTO) 169 K/uL (150-450); RED BLOOD CELL COUNT(AUTO) 3.75 MIL/uL (4.0-5.2); RED CELL DISTRIBUTION WIDTH 15.9 % (11.5-15.0)
[2023-05-29 08:06] LABS: CALCIUM, SERUM 8.8 mg/dL (8.5-10.1); CREATININE 0.7 mg/dL (0.6-1.3); POTASSIUM 4.1 mmol/L (3.5-5.1)
[2023-05-29] MEDS: GLUCERNA SHAKE 237 ML CAN PO SCH ×3 (08:44→17:22)
[2023-05-29] MEDS: LINAGLIPTIN 5 MG TABLET PO SCH (08:45)
[2023-05-29] MEDS: ASPIRIN 81 MG TAB.CHEW PO SCH (08:45)
[2023-05-29] MEDS: ENOXAPARIN SODIUM 30 MG/0.3 ML DISP.SYRIN SQ SCH (08:48)
[2023-05-29] MEDS: INSULIN REGULAR, HUMAN 100 UNIT/ML 3 ML VIAL SQ PRN ×3 (11:57→22:09)
[2023-05-29 12:55] LABS: EOSINOPHILS % (MANUAL) 2 % (0-4); LYMPHOCYTES % (MANUAL) 20 % (16-48); MONOCYTES % (MANUAL) 18 % (0-11.0); NEUTROPHILS % (MANUAL) 60 (42-76)
[2023-05-29 12:56] LABS: ANISOCYTOSIS 1+; BASOPHILS % (MANUAL) 0 % (0.0-2.0); PLATELET ESTIMATE ADEQUATE
[2023-05-29 16:00] VITALS: BP 114/76; TEMP 97.3; O2SAT 100
[2023-05-29 20:00] VITALS: BP 109/67; TEMP 98.4; O2SAT 100
[2023-05-29] MEDS: MIRTAZAPINE 15 MG TABLET PO SCH (21:20)
[2023-05-29] MEDS: INSULIN GLARGINE, 100 UNIT/ML CARTRIDGE SQ SCH (22:09)
[2023-05-30 00:36] LABS: HIV-1 p24 ANTIGEN NON REACTIVE (NONREACTIVE); HIV-1/2 ANTIBODY NON REACTIVE (NONREACTIVE)
[2023-05-30] MEDS: BLOOD SUGAR DIAGNOSTIC 1 EACH STRIP IN SCH ×4 (06:32→22:01)
[2023-05-30] MEDS: INSULIN REGULAR, HUMAN 100 UNIT/ML 3 ML VIAL SQ PRN (06:33)
[2023-05-30 07:00] VITALS: BP 113/64; TEMP 97.7; O2SAT 95
[2023-05-30] MEDS: LINAGLIPTIN 5 MG TABLET PO SCH (09:00)
[2023-05-30] MEDS: ASPIRIN 81 MG TAB.CHEW PO SCH (09:43)
[2023-05-30] MEDS: GLUCERNA SHAKE 237 ML CAN PO SCH ×3 (09:45→18:27)
[2023-05-30] MEDS: ENOXAPARIN SODIUM 30 MG/0.3 ML DISP.SYRIN SQ SCH (09:45)
[2023-05-30 16:00] VITALS: BP 116/67; TEMP 97.4; O2SAT 96
[2023-05-30 20:00] VITALS: BP 111/59; TEMP 97.9; O2SAT 100
[2023-05-30] MEDS: INSULIN GLARGINE, 100 UNIT/ML CARTRIDGE SQ SCH (22:09)
[2023-05-30] MEDS: MIRTAZAPINE 15 MG TABLET PO SCH (22:13)
[2023-05-31] MEDS: INSULIN REGULAR, HUMAN 100 UNIT/ML 3 ML VIAL SQ PRN (01:55)
[2023-05-31] MEDS: DEXTROSE 50%-WATER 50 ML DISP.SYRIN IV PRN (06:11)
[2023-05-31] MEDS: BLOOD SUGAR DIAGNOSTIC 1 EACH STRIP IN SCH ×4 (07:16→22:03)
[2023-05-31] MEDS: GLUCERNA SHAKE 237 ML CAN PO SCH ×3 (08:00→17:30)
[2023-05-31 08:30] VITALS: BP 99/60; TEMP 98.4; O2SAT 96
[2023-05-31] MEDS: LINAGLIPTIN 5 MG TABLET PO SCH (09:00)
[2023-05-31] MEDS: ASPIRIN 81 MG TAB.CHEW PO SCH (15:00)
[2023-05-31] MEDS: ENOXAPARIN SODIUM 30 MG/0.3 ML DISP.SYRIN SQ SCH (15:02)
[2023-05-31 16:00] VITALS: BP 103/61; TEMP 98.2; O2SAT 96
[2023-05-31 20:00] VITALS: BP 112/52; TEMP 97.7; O2SAT 98
[2023-05-31] MEDS: MIRTAZAPINE 15 MG TABLET PO SCH (22:03)
[2023-05-31] MEDS: INSULIN GLARGINE, 100 UNIT/ML CARTRIDGE SQ SCH (22:21)
[2023-06-01] MEDS: BLOOD SUGAR DIAGNOSTIC 1 EACH STRIP IN SCH ×4 (06:32→21:48)
[2023-06-01 08:00] VITALS: BP 140/92; TEMP 98.2; O2SAT 94
[2023-06-01] MEDS: GLUCERNA SHAKE 237 ML CAN PO SCH ×3 (08:00→17:38)
[2023-06-01] MEDS: LINAGLIPTIN 5 MG TABLET PO SCH (09:00)
[2023-06-01] MEDS: ASPIRIN 81 MG TAB.CHEW PO SCH (15:04)
[2023-06-01] MEDS: ENOXAPARIN SODIUM 30 MG/0.3 ML DISP.SYRIN SQ SCH (15:05)
[2023-06-01 16:00] VITALS: BP 109/59; TEMP 98.4; O2SAT 99
[2023-06-01 20:00] VITALS: BP 97/51; TEMP 98.2; O2SAT 99
[2023-06-01] MEDS: INSULIN GLARGINE, 100 UNIT/ML CARTRIDGE SQ SCH (21:50)
[2023-06-01] MEDS: MIRTAZAPINE 15 MG TABLET PO SCH (21:51)
[2023-06-02] MEDS: BLOOD SUGAR DIAGNOSTIC 1 EACH STRIP IN SCH ×4 (06:31→22:37)
[2023-06-02] MEDS: INSULIN REGULAR, HUMAN 100 UNIT/ML 3 ML VIAL SQ PRN ×3 (06:32→18:59)
[2023-06-02 07:24] LABS: BASOPHILS % (AUTO) 0.3 % (0.0-2.0); EOSINOPHILS # (AUTO) 0.1 K/uL (0.0-0.7); EOSINOPHILS % (AUTO) 1.3 % (0.0-6.0); HEMATOCRIT 33 % (33-45); LYMPHOCYTES # (AUTO) 0.8 K/uL (0.8-4.8); LYMPHOCYTES % (AUTO) 21.2 % (20.0-44.0); MEAN CORPUSCULAR HEMOGLOBIN 29 PG (26.0-33.0); MEAN CORPUSCULAR HGB CONC 34 g/dl (31.0-36.0); MEAN CORPUSCULAR VOLUME 87 fL (82-100); MONOCYTES # (AUTO) 0.7 K/uL (0.1-1.30); MONOCYTES % (AUTO) 18.5 % (2.0-12.0); NEUTROPHILS # (AUTO) 2.3 K/uL (1.8-8.9); NEUTROPHILS % (AUTO) 58.7 % (43.0-81.0); PLATELET COUNT (AUTO) 160 K/uL (150-450); RED BLOOD CELL COUNT(AUTO) 3.74 MIL/uL (4.0-5.2); RED CELL DISTRIBUTION WIDTH 15.8 % (11.5-15.0); WHITE BLOOD COUNT (AUTO) 3.9 K/uL (4.3-11.0)
[2023-06-02 08:06] LABS: ALBUMIN 2.7 g/dL (3.4-5.0); BILIRUBIN,TOTAL 0.2 mg/dL (0.2-1.0); CALCIUM, SERUM 9.2 mg/dL (8.5-10.1); CREATININE 0.7 mg/dL (0.6-1.3); POTASSIUM 4.7 mmol/L (3.5-5.1); TOTAL PROTEIN, SERUM 6.9 g/dL (6.4-8.2)
[2023-06-02] MEDS: GLUCERNA SHAKE 237 ML CAN PO SCH ×3 (09:54→17:32)
[2023-06-02] MEDS: ASPIRIN 81 MG TAB.CHEW PO SCH (09:56)
[2023-06-02] MEDS: LINAGLIPTIN 5 MG TABLET PO SCH (09:56)
[2023-06-02] MEDS: ENOXAPARIN SODIUM 30 MG/0.3 ML DISP.SYRIN SQ SCH (09:58)
[2023-06-02 10:53] LABS: LYMPHOCYTES % (MANUAL) 16 % (16-48); MONOCYTES % (MANUAL) 17 % (0-11.0); NEUTROPHILS % (MANUAL) 67 (42-76)
[2023-06-02 10:54] LABS: ANISOCYTOSIS 1+; PLATELET ESTIMATE ADEQUATE
[2023-06-02 20:00] VITALS: BP_SYST 104; BP_SYST 148; BP_DIAS 62; TEMP 97.8; O2SAT 95; O2SAT 97
[2023-06-02] MEDS: INSULIN GLARGINE, 100 UNIT/ML CARTRIDGE SQ SCH (22:00)
[2023-06-02] MEDS: MIRTAZAPINE 15 MG TABLET PO SCH (22:15)
[2023-06-03] MEDS: BLOOD SUGAR DIAGNOSTIC 1 EACH STRIP IN SCH ×4 (06:11→21:55)
[2023-06-03] MEDS: INSULIN REGULAR, HUMAN 100 UNIT/ML 3 ML VIAL SQ PRN ×3 (06:12→17:38)
[2023-06-03 07:00] VITALS: BP 116/67; TEMP 97.7; O2SAT 96
[2023-06-03] MEDS: GLUCERNA SHAKE 237 ML CAN PO SCH ×3 (09:17→17:36)
[2023-06-03] MEDS: LINAGLIPTIN 5 MG TABLET PO SCH (09:27)
[2023-06-03] MEDS: ASPIRIN 81 MG TAB.CHEW PO SCH (09:27)
[2023-06-03] MEDS: ENOXAPARIN SODIUM 30 MG/0.3 ML DISP.SYRIN SQ SCH (09:30)
[2023-06-03 16:00] VITALS: BP 85/55; TEMP 97.6; O2SAT 98
[2023-06-03 20:00] VITALS: BP 111/63; TEMP 98.1; O2SAT 97
[2023-06-03] MEDS: INSULIN GLARGINE, 100 UNIT/ML CARTRIDGE SQ SCH (22:04)
[2023-06-03] MEDS: MIRTAZAPINE 15 MG TABLET PO SCH (22:08)
[2023-06-04] MEDS: INSULIN REGULAR, HUMAN 100 UNIT/ML 3 ML VIAL SQ PRN ×4 (00:44→17:32)
[2023-06-04] MEDS: BLOOD SUGAR DIAGNOSTIC 1 EACH STRIP IN SCH ×4 (07:30→21:46)
[2023-06-04 08:00] VITALS: BP 115/66; TEMP 98.6; O2SAT 98
[2023-06-04] MEDS: GLUCERNA SHAKE 237 ML CAN PO SCH ×3 (09:03→16:24)
[2023-06-04] MEDS: LINAGLIPTIN 5 MG TABLET PO SCH (09:05)
[2023-06-04] MEDS: ASPIRIN 81 MG TAB.CHEW PO SCH (09:05)
[2023-06-04] MEDS: ENOXAPARIN SODIUM 30 MG/0.3 ML DISP.SYRIN SQ SCH (09:06)
[2023-06-04 16:00] VITALS: BP 90/75; TEMP 98.1; O2SAT 96
[2023-06-04 20:00] VITALS: BP 107/67; TEMP 98.4; O2SAT 100
[2023-06-04] MEDS: INSULIN GLARGINE, 100 UNIT/ML CARTRIDGE SQ SCH (21:49)
[2023-06-04] MEDS: MIRTAZAPINE 15 MG TABLET PO SCH (21:51)
[2023-06-05 07:00] VITALS: BP 102/55; TEMP 97.7; O2SAT 100
[2023-06-05] MEDS: BLOOD SUGAR DIAGNOSTIC 1 EACH STRIP IN SCH ×4 (07:28→22:15)
[2023-06-05] MEDS: GLUCERNA SHAKE 237 ML CAN PO SCH ×3 (08:02→17:03)
[2023-06-05] MEDS: LINAGLIPTIN 5 MG TABLET PO SCH (08:38)
[2023-06-05] MEDS: ASPIRIN 81 MG TAB.CHEW PO SCH (08:38)
[2023-06-05] MEDS: ENOXAPARIN SODIUM 30 MG/0.3 ML DISP.SYRIN SQ SCH (08:39)
[2023-06-05] MEDS: INSULIN REGULAR, HUMAN 100 UNIT/ML 3 ML VIAL SQ PRN ×4 (08:40→22:31)
[2023-06-05] MEDS: DEXTROSE 50%-WATER 50 ML DISP.SYRIN IV PRN (11:29)
[2023-06-05 16:00] VITALS: BP 95/52; TEMP 97.7; O2SAT 100
[2023-06-05 20:00] VITALS: BP 92/53; TEMP 97.7; O2SAT 99
[2023-06-05] MEDS: INSULIN GLARGINE, 100 UNIT/ML CARTRIDGE SQ SCH (22:00)
[2023-06-05] MEDS: MIRTAZAPINE 15 MG TABLET PO SCH (22:14)
[2023-06-06] MEDS: BLOOD SUGAR DIAGNOSTIC 1 EACH STRIP IN SCH ×4 (06:15→21:43)
[2023-06-06 07:30] VITALS: BP 97/61; TEMP 98.1; O2SAT 98
[2023-06-06] MEDS: ASPIRIN 81 MG TAB.CHEW PO SCH (08:51)
[2023-06-06] MEDS: LINAGLIPTIN 5 MG TABLET PO SCH (08:51)
[2023-06-06] MEDS: GLUCERNA SHAKE 237 ML CAN PO SCH ×3 (08:51→17:17)
[2023-06-06] MEDS: ENOXAPARIN SODIUM 30 MG/0.3 ML DISP.SYRIN SQ SCH (08:56)
[2023-06-06] MEDS: INSULIN REGULAR, HUMAN 100 UNIT/ML 3 ML VIAL SQ PRN ×2 (13:42→18:12)
[2023-06-06 16:00] VITALS: BP 110/56; TEMP 98.2; O2SAT 98
[2023-06-06 20:00] VITALS: BP 106/60; TEMP 98.2; O2SAT 98
[2023-06-06] MEDS: MIRTAZAPINE 15 MG TABLET PO SCH (21:48)
[2023-06-06] MEDS: INSULIN GLARGINE, 100 UNIT/ML CARTRIDGE SQ SCH (21:49)
[2023-06-07] MEDS: BLOOD SUGAR DIAGNOSTIC 1 EACH STRIP IN SCH ×4 (06:04→21:40)
[2023-06-07] MEDS: INSULIN REGULAR, HUMAN 100 UNIT/ML 3 ML VIAL SQ PRN ×4 (06:56→21:48)
[2023-06-07 08:00] VITALS: BP 111/65; TEMP 98.6; O2SAT 100
[2023-06-07] MEDS: GLUCERNA SHAKE 237 ML CAN PO SCH ×3 (08:35→17:06)
[2023-06-07] MEDS: LINAGLIPTIN 5 MG TABLET PO SCH (09:02)
[2023-06-07] MEDS: ASPIRIN 81 MG TAB.CHEW PO SCH (09:02)
[2023-06-07] MEDS: ENOXAPARIN SODIUM 30 MG/0.3 ML DISP.SYRIN SQ SCH (09:04)
[2023-06-07 16:00] VITALS: BP 107/84; TEMP 97.5; O2SAT 98
[2023-06-07 20:00] VITALS: BP 97/64; TEMP 97.5; O2SAT 98
[2023-06-07] MEDS: MIRTAZAPINE 15 MG TABLET PO SCH (21:40)
[2023-06-07] MEDS: INSULIN GLARGINE, 100 UNIT/ML CARTRIDGE SQ SCH (21:44)
[2023-06-08] MEDS: BLOOD SUGAR DIAGNOSTIC 1 EACH STRIP IN SCH ×4 (06:38→22:10)
[2023-06-08] MEDS: INSULIN REGULAR, HUMAN 100 UNIT/ML 3 ML VIAL SQ PRN ×3 (06:38→22:13)
[2023-06-08 08:00] VITALS: BP 102/64; TEMP 98.8; O2SAT 100
[2023-06-08] MEDS: LINAGLIPTIN 5 MG TABLET PO SCH (09:52)
[2023-06-08] MEDS: ASPIRIN 81 MG TAB.CHEW PO SCH (09:52)
[2023-06-08] MEDS: GLUCERNA SHAKE 237 ML CAN PO SCH ×3 (09:52→17:13)
[2023-06-08] MEDS: ENOXAPARIN SODIUM 30 MG/0.3 ML DISP.SYRIN SQ SCH (09:55)
[2023-06-08 16:00] VITALS: BP 120/62; TEMP 98; O2SAT 98
[2023-06-08 20:00] VITALS: BP 91/52; TEMP 97.8; O2SAT 96
[2023-06-08] MEDS: MIRTAZAPINE 15 MG TABLET PO SCH (22:04)
[2023-06-08] MEDS: INSULIN GLARGINE, 100 UNIT/ML CARTRIDGE SQ SCH (22:12)
[2023-06-09] MEDS: BLOOD SUGAR DIAGNOSTIC 1 EACH STRIP IN SCH ×4 (06:24→21:31)
[2023-06-09] MEDS: INSULIN REGULAR, HUMAN 100 UNIT/ML 3 ML VIAL SQ PRN ×3 (06:25→21:32)
[2023-06-09 07:29] LABS: BASOPHILS % (AUTO) 0.3 % (0.0-2.0); EOSINOPHILS # (AUTO) 0.1 K/uL (0.0-0.7); EOSINOPHILS % (AUTO) 1.2 % (0.0-6.0); HEMATOCRIT 33 % (33-45); HEMOGLOBIN 10.9 g/dL (11.5-14.8); LYMPHOCYTES # (AUTO) 0.9 K/uL (0.8-4.8); MEAN CORPUSCULAR HEMOGLOBIN 29 PG (26.0-33.0); MEAN CORPUSCULAR HGB CONC 33 g/dl (31.0-36.0); MEAN CORPUSCULAR VOLUME 89 fL (82-100); MONOCYTES # (AUTO) 1.2 K/uL (0.1-1.30); MONOCYTES % (AUTO) 22.2 % (2.0-12.0); NEUTROPHILS # (AUTO) 3.4 K/uL (1.8-8.9); NEUTROPHILS % (AUTO) 60.3 % (43.0-81.0); PLATELET COUNT (AUTO) 177 K/uL (150-450); RED BLOOD CELL COUNT(AUTO) 3.72 MIL/uL (4.0-5.2); RED CELL DISTRIBUTION WIDTH 15.9 % (11.5-15.0); WHITE BLOOD COUNT (AUTO) 5.6 K/uL (4.3-11.0)
[2023-06-09] MEDS: GLUCERNA SHAKE 237 ML CAN PO SCH ×3 (08:00→18:11)
[2023-06-09 08:14] LABS: ALANINE AMINOTRANSFERASE 30 U/L (12-78); ALBUMIN 2.7 g/dL (3.4-5.0); ALKALINE PHOSPHATASE 236 U/L (46-116); ASPARTATE AMINOTRANSFERASE 28 U/L (15-37); BILIRUBIN,TOTAL 0.2 mg/dL (0.2-1.0); CALCIUM, SERUM 9.1 mg/dL (8.5-10.1); CARBON DIOXIDE 27 mmol/L (21-32); CHLORIDE 103 mmol/L (98-107); CREATININE 0.6 mg/dL (0.6-1.3); GLUCOSE 228 mg/dL (74-106); MAGNESIUM 2.3 mg/dL (1.8-2.4); PHOSPHORUS 4.1 mg/dL (2.5-4.9); POTASSIUM 4.9 mmol/L (3.5-5.1); SODIUM SERUM 135 mmol/L (136-145); TOTAL PROTEIN, SERUM 6.8 g/dL (6.4-8.2); UREA NITROGEN, BLOOD 35 mg/dL (7-18)
[2023-06-09 08:36] LABS: EOSINOPHILS % (MANUAL) 2 % (0-4); LYMPHOCYTES % (MANUAL) 19 % (16-48); MONOCYTES % (MANUAL) 16 % (0-11.0); NEUTROPHILS % (MANUAL) 63 (42-76); PLATELET ESTIMATE ADEQUATE
[2023-06-09 08:37] LABS: OVALOCYTES 1+
[2023-06-09] MEDS: ASPIRIN 81 MG TAB.CHEW PO SCH (09:22)
[2023-06-09] MEDS: LINAGLIPTIN 5 MG TABLET PO SCH (09:22)
[2023-06-09] MEDS: ENOXAPARIN SODIUM 30 MG/0.3 ML DISP.SYRIN SQ SCH (09:24)
[2023-06-09 20:00] VITALS: BP 100/56; TEMP 97.5; O2SAT 98
[2023-06-09] MEDS: INSULIN GLARGINE, 100 UNIT/ML CARTRIDGE SQ SCH (21:35)
[2023-06-09] MEDS: MIRTAZAPINE 15 MG TABLET PO SCH (21:38)
[2023-06-10] MEDS: BLOOD SUGAR DIAGNOSTIC 1 EACH STRIP IN SCH ×4 (06:41→22:36)
[2023-06-10] MEDS: INSULIN REGULAR, HUMAN 100 UNIT/ML 3 ML VIAL SQ PRN ×3 (06:42→22:40)
[2023-06-10 08:00] VITALS: BP 95/50; TEMP 97.6; O2SAT 99
[2023-06-10] MEDS: GLUCERNA SHAKE 237 ML CAN PO SCH ×3 (08:00→18:02)
[2023-06-10] MEDS: LINAGLIPTIN 5 MG TABLET PO SCH (09:45)
[2023-06-10] MEDS: ASPIRIN 81 MG TAB.CHEW PO SCH (09:45)
[2023-06-10] MEDS: ENOXAPARIN SODIUM 30 MG/0.3 ML DISP.SYRIN SQ SCH (09:46)
[2023-06-10 16:00] VITALS: BP 108/60; TEMP 98.1; O2SAT 96
[2023-06-10 20:00] VITALS: BP 107/63; TEMP 97.9; O2SAT 97
[2023-06-10] MEDS: MIRTAZAPINE 15 MG TABLET PO SCH (22:36)
[2023-06-10] MEDS: INSULIN GLARGINE, 100 UNIT/ML CARTRIDGE SQ SCH (22:38)
[2023-06-11] MEDS: INSULIN REGULAR, HUMAN 100 UNIT/ML 3 ML VIAL SQ PRN (07:19)
[2023-06-11] MEDS: BLOOD SUGAR DIAGNOSTIC 1 EACH STRIP IN SCH (07:19)
[2023-06-11 08:00] VITALS: BP 95/58; TEMP 98.2; O2SAT 96
[2023-06-11] MEDS: LINAGLIPTIN 5 MG TABLET PO SCH (08:49)
[2023-06-11] MEDS: ASPIRIN 81 MG TAB.CHEW PO SCH (08:49)
[2023-06-11] MEDS: GLUCERNA SHAKE 237 ML CAN PO SCH (08:49)
[2023-06-11] MEDS: ENOXAPARIN SODIUM 30 MG/0.3 ML DISP.SYRIN SQ SCH (08:50)
== END 2023-06-11 10:15 | DRG 291 ==
LOC: ER 20:42 → TRANSITION 05-11 03:55 → TELE 05-12 03:47 → MED 05-15 12:23
PROVIDERS: ADMIT Nurse Practitioner Acute Care
DX: I50.23 Acute on chronic systolic (congestive) heart failure (principal); G93.41 Metabolic encephalopathy; I42.9 Cardiomyopathy, unspecified; J98.11 Atelectasis; E44.0 Moderate protein-calorie malnutrition; E87.20 Acidosis, unspecified; J90 Pleural effusion, not elsewhere classified; F03.C2 Unspecified dementia, severe, with psychotic disturbance; E22.2 Syndrome of inappropriate secretion of antidiuretic hormone; I25.10 Atherosclerotic heart disease of native coronary artery without angina pectoris; F29 Unspecified psychosis not due to a substance or known physiological condition; E11.9 Type 2 diabetes mellitus without complications; Z20.822 Contact with and (suspected) exposure to COVID-19; Z86.16 Personal history of COVID-19; Z98.890 Other specified postprocedural states; F39 Unspecified mood [affective] disorder; Z79.84 Long term (current) use of oral hypoglycemic drugs; Z79.899 Other long term (current) drug therapy; Z79.4 Long term (current) use of insulin; Z95.810 Presence of automatic (implantable) cardiac defibrillator; E88.09 Other disorders of plasma-protein metabolism, not elsewhere classified; E86.1 Hypovolemia; T43.025A Adverse effect of tetracyclic antidepressants, initial encounter; Y92.9 Unspecified place or not applicable; R79.89 Other specified abnormal findings of blood chemistry
CPT/HCPCS: 36415; 71045-TC; 80048-TC; 80053-TC; 80061-TC; 82962-TC; 83605-TC; 83735-TC; 83880; 84100-TC; 84443-TC; 84484-TC; 84550-TC; 85025-TC; 86706; 87081-TC; 87806; 93307-TC; 93971-TC; 97110-TC; 97116-TC; 97530-TC; 97535-TC; C9803; G0378; J0692; J1650; J1815; J1940; J2405; J7060